=== PATIENT | female | born 1960 | race African-American/Black ===

== ENCOUNTER 2020-08-18 09:08 | Outpatient (REF) | payer MEDICARE, SELFPAY ==
[2020-08-23 19:37] LABS: HPV mRNA E6/E7 Not Detected (Not Detected)
== END 2020-08-18 09:09 | disposition home or self-care (01) ==
LOC: HO.LAB 09:08
PROVIDERS: PCP Internal Medicine; Visit Provider Obstetrics & Gynecology
DX: Z01.419 Encounter for gynecological examination (general) (routine) without abnormal findings (principal); Z88.6 Allergy status to analgesic agent; Z88.0 Allergy status to penicillin; Z79.899 Other long term (current) drug therapy
CPT/HCPCS: 87624; 87625; 88142

== ENCOUNTER → 2020-10-07 14:04 | Outpatient (BNVA) | payer MEDICARE, SELFPAY | PROVIDERS: PCP Internal Medicine; Visit Provider Student in an Organized Health Care Education/Training Program | DX: M17.12 Unilateral primary osteoarthritis, left knee (principal); G57.93 Unspecified mononeuropathy of bilateral lower limbs; Z87.891 Personal history of nicotine dependence; Z79.899 Other long term (current) drug therapy | CPT/HCPCS: Q3014 ==

== ENCOUNTER → 2021-03-24 16:02 | Outpatient (BNVA) | payer MEDICARE, SELFPAY | PROVIDERS: PCP Internal Medicine; Visit Provider Student in an Organized Health Care Education/Training Program | DX: M17.12 Unilateral primary osteoarthritis, left knee (principal); G57.93 Unspecified mononeuropathy of bilateral lower limbs | CPT/HCPCS: 99212 ==

== ENCOUNTER 2021-05-19 12:17 | Outpatient (REF) | payer MEDICARE, SELFPAY ==
--- NOTE | ~2021-05-19 | MM_ITS ---
EXAMINATION: MM DIAGNOSTIC DIGITAL BREAST TOMOSYNTHESIS, BILATERAL CLINICAL INFORMATION: Right invasive ductal cancer status post lumpectomy 07/09/2019. Due for yearly. COMPARISON: Mammography: 05/17/2020, 07/09/2019, 03/09/2019, 12/24/2018, 12/18/2017 TECHNIQUE: Digital breast tomosynthesis is performed in both the craniocaudal and mediolateral oblique views along with computer-aided detection (CAD). Synthesized 2D images are generated from the tomosynthesis. Additional views are obtained: Exaggerated right CC, magnification right CC, magnification right exaggerated CC, magnification right ML. FINDINGS: There are scattered areas of fibroglandular density (ACR BI-RADS breast composition Category b). Post therapy changes right breast are again noted with reduced breast size and stable scarring posterior upper outer quadrant. The axilla and skin contours are unremarkable. No abnormal calcifications. The left breast parenchymal pattern is stable with no interval mass or architectural abnormality. No abnormal calcifications. The left axillary nodes are prominent when compared with prior study, noted after patient left office. Patient will be recalled for additional targeted ultrasound left axilla. MM/MM tomosynthesis diagnostic BI IMPRESSION: 1. Left: Prominence left axillary nodes since prior imaging. Breast parenchymal or unremarkable. 2. Right: Post therapy changes, stable. ASSESSMENT: BI-RADS 0: Incomplete - Need Additional Imaging Evaluation RECOMMENDATION: 1. Targeted ultrasound left axilla. 2. Radiology department staff will arrange for ultrasound appointment. This patient's information was entered into a reminder system with a target due date for their next mammogram.
== END 2021-05-19 12:18 | disposition home or self-care (01) ==
LOC: HO.MAMMO 12:17
PROVIDERS: PCP Internal Medicine; Visit Provider Surgery
DX: Z85.3 Personal history of malignant neoplasm of breast (principal)
CPT/HCPCS: 77062; 77066

== ENCOUNTER 2021-05-24 13:31 | Outpatient (REF) | payer MEDICARE, SELFPAY ==
--- NOTE | ~2021-05-24 | US_ITS ---
EXAMINATION: US DIAGNOSTIC ULTRASOUND BREAST (AXILLA), LEFT CLINICAL INFORMATION: Recall from recent mammography for prominent left axillary nodes with normal breast parenchyma. Prior history invasive ductal cancer contralateral right breast status post lumpectomy 07/09/2019. COMPARISON: Mammography 05/19/2021, 05/17/2020, MRI breasts 06/16/2019. TECHNIQUE: Ultrasound of the left axilla is performed using real-time leary scale imaging and color Doppler. FINDINGS: There is a mildly prominent node in the left axilla 1.6 cm length by 1.0 cm with with cortex measuring 5-6 mm in thickness. There is normal central hilar color flow pattern. The surface of the nodes smooth. No spiculation. No cystic change. Other nodes imaged in the left axilla shows normal arden architecture and color flow and parenchymal thickness. Results are discussed with the patient at time of visit. Patient has had recent COVID vaccination left arm within past 3 months. The prominent left axillary node is likely benign reactive change from the vaccination. The left breast parenchymal pattern on recent mammography is unremarkable. Management plan is for short interval follow-up left side in 3 months. US/US breast LT complete IMPRESSION: Prominent left axillary node with mildly thickened cortex 5-6 mm. Finding likely related to recent COVID vaccination. ASSESSMENT: BI-RADS 3: Probably Benign RECOMMENDATION: Left mammography and targeted left axillary ultrasound in 3 months. This patient's information was entered into a reminder system with a target due date for their next mammogram.
== END 2021-05-24 13:32 | disposition home or self-care (01) ==
LOC: HO.MAMMO 13:31
PROVIDERS: Visit Provider Surgery
DX: R92.8 Other abnormal and inconclusive findings on diagnostic imaging of breast (principal)
CPT/HCPCS: 76641

== ENCOUNTER 2021-07-04 17:44 | Emergency (ER) | payer MEDICARE, SELFPAY ==
--- NOTE | 2021-07-04 | ECG_ITS ---
Test Reason : TACARDYA Blood Pressure : / mmHG Vent. Rate : 132 BPM Atrial Rate : 132 BPM P-R Int : 164 ms QRS Dur : 060 ms QT Int : 274 ms P-R-T Axes : 060 -07 -35 degrees QTc Int : 405 ms Sinus tachycardia Biatrial enlargement Septal infarct , age undetermined Abnormal ECG No previous ECGs available Referred By: Generic ED Physician Electronically Signed By:SAMSON PASCUAL
--- NOTE | ~2021-07-04 | CT_ITS ---
EXAMINATION: CTA CHEST PE STUDY CLINICAL INFORMATION: cancer, tachycardia, abnormal CXR COMPARISON: No pertinent prior studies are available for comparison. TECHNIQUE: Prior to contrast administration, noncontrast localization images were obtained. After the administration of 55 mL of Omnipaque 350 IV contrast, contiguous thin slice helical images were obtained through the thorax. Reformatted MIP images in the coronal and sagittal planes were obtained at the acquisition workstation. This CT examination was performed using dose optimization techniques as appropriate, variously including the following: *Automated exposure control *Adjustment of mA and/or kV according to patient size (this includes techniques or standardized protocols for targeted exams where dose is matched to indication/reason for exam; i.e. extremities or head) *Use of iterative reconstruction technique DLP: 348 mGy-cm. FINDINGS: The bolus timing on this study was acceptable for visualization of the pulmonary arterial tree. Subtle subsegmental filling defects seen within the right lower lobe subsegmental pulmonary arteries. Some of these appear to be more apparent along the wall and may be more chronic in nature rather than acute pulmonary emboli. Patchy airspace disease seen bilaterally with bilateral scattered ill-defined nodular opacities such as a 1 cm nodule in the posterior left costophrenic sulcus. Additional somewhat ill-defined nodular opacities are noted bilaterally which is a 0.7 cm nodule in the posterior aspect of the right lung apex. There is bilateral hilar fullness and more focal consolidation/volume loss in the medial aspect of the right middle lobe with ill-defined nodular opacities seen in the right middle lobe the bilateral hilar regions are prominent without discrete hilar adenopathy but hilar confluent lymphoid tissue likely present. This is difficult to quantify. There is no evidence of pleural effusion or pneumothorax. The heart is normal in size. No evidence of ventricular septal bowing or right heart strain. Great vessels are normal. Otherwise the mediastinum is unremarkable. There is no pericardial effusion or pericardial thickening. Limited evaluation of the upper abdominal viscera is unremarkable. CT/CT angio chest PE protocol IMPRESSION: There are subtle filling defects within subsegmental branches of the right lower lobe since with pulmonary emboli of indeterminate age. More confluent airspace disease is seen within the right middle lobe extending to a ill-defined hilar fullness. There is patchy bilateral nodular airspace disease bilaterally. Some of these nodules or more discrete while others are less well-defined. Malignancy would be favored over infectious etiology with this appearance. Clinical correlation would be recommended. PET/CT scan may be helpful for this appearance. VTE: Positive This critical result was discussed with CYNDI Barger at 07/04/2021 11:03 PM and it was ascertained that the content and urgency of the report was understood at the time of direct communication.
--- NOTE | ~2021-07-04 | CT_ITS ---
EXAMINATION: CT HEAD WITHOUT CONTRAST CLINICAL INFORMATION: Weakness. History of stroke. COMPARISON: None TECHNIQUE: Contiguous axial imaging was performed from the skull base to vertex without intravenous administration of contrast. This CT examination was performed using dose optimization techniques as appropriate, variously including the following: *Automated exposure control *Adjustment of mA and/or kV according to patient size (this includes techniques or standardized protocols for targeted exams where dose is matched to indication/reason for exam; i.e. extremities or head) *Use of iterative reconstruction technique DLP: 693 mGy-cm FINDINGS: There are multiple rounded masses throughout the cerebral cortices bilaterally with surrounding vasogenic edema. Most masses demonstrate central lucency suspicious for necrosis. Metastatic disease is a leading consideration. Further evaluation with MRI of the brain without and with contrast or post contrast CT of the brain is advised. The right middle cerebral peduncle is expanded, and a small 10 mm lesion is suspected with vasogenic edema. The ventricles are normal in size and midline in position. No shift of midline structures. There is diffuse multifocal mass effect from multiple cerebral lesions. The paramesencephalic cisterns are spared. CT/CT head/brain wo con IMPRESSION: Multiple bilateral cerebral and right cerebellar mass lesions. Central necrosis suspected and multiple lesions. Contrast-enhanced exam is advised. This critical result was discussed with CYNDI Kilgore at 10:47 PM on 07/04/2020 and it was ascertained that the content and urgency of the report was understood at the time of direct communication.
--- NOTE | ~2021-07-04 | XR_ITS ---
EXAMINATION: XR CHEST CLINICAL INFORMATION: Chest pain and weakness COMPARISON: Port-A-Cath placement 2019. Dorsal spine 2016. TECHNIQUE: Frontal view of the chest was obtained. FINDINGS: There is chronic progressive airways disease including right greater than left bronchiectasis. There is patchy perihilar airspace disease and small ill-defined nodules on the right which may indicate active endobronchial spread of disease. This could represent bronchopneumonia or aspiration among other considerations. Clinical correlation is required. Heart and mediastinum within normal limits. Normal gas pattern. Postsurgical changes in the right axilla. History of right breast cancer metastatic to axillary nodes. No acute osseous finding. XR/XR chest 1V IMPRESSION: There is new patchy airspace disease and endobronchial spread of disease on the right. Progressive chronic airways disease with bronchiectasis.
[2021-07-04 18:30] VITALS: BP 103/80; PULSE 136; RESP 16; TEMP 37.1; O2SAT 96; BMI 20.3
--- NOTE | 2021-07-04 18:41 | PC.NURSE ---
SPOKE WITH SON MARTA WHO CONFIRMED PATIENT HAD MINI STROKE AND THAT WAS REASON SHE WAS AT [facility]. ALSO STATES SHE WAS TOLD CA IN NOW IN HER BRAIN. CONFIRMED PATIENT FACIAL DROOP HAS BEEN PRESENT SINCE KE. THINKS PATIENT NEEDS REHAB/FACILITY.
[2021-07-04 19:18] LABS: MANUAL DIFF FLAG NO
[2021-07-04 19:20] LABS: Basophils Percent Auto 0.2 % (0-2); Eosinophils Absolute Auto 0.1 X10*3/uL (0.0-0.4); Eosinophils Percent Auto 0.7 % (0-4); Hematocrit 40.6 % (37-47); Hemoglobin 13.2 g/dl (12.0-16.0); Imm Gran Abs Auto 0.08 X10*3/uL (0.00-0.03); Imm Gran Pct Auto 0.8 % (0.0-0.4); Lymphocytes Absolute Auto 0.6 X10*3/uL (1.2-4.9); Mean Corpuscular HGB Conc 32.5 g/dl (31.0-35.0); Mean Corpuscular Hemoglobin 26.3 pg (27.0-33.0); Mean Platelet Volume 9.4 fL (9.4-12.3); Monocytes Absolute Auto 0.5 X10*3/uL (0.1-1.2); Monocytes Percent Auto 4.5 % (2-11); Neutrophils Percent Auto 87.8 % (45-73); Platelet Count 206 X10*3/uL (160-400); Red Blood Count 5.01 X10*6/uL (4.20-5.50); Red Cell Distribution Width 14.7 % (11.0-16.0); White Blood Count 10.3 X10*3/uL (4.8-10.8)
[2021-07-04 19:49] LABS: Anion Gap 17 (12-20); Blood Urea Nitrogen 34 mg/dL (9-16); Carbon Dioxide 26 mmol/L (22-29); Chloride 103 mmol/L (96-108); Creatinine Clr Calc Pharmacy 58.2; Estimated Glomerular Filt Rate > 60; Glucose Random 185 mg/dL (60-115); Sodium 142 mmol/L (135-145)
--- NOTE | 2021-07-04 20:33 | ED_ITS ---
HPI - Weakness General Chief complaint: Weakness Stated complaint: body weakness, pt cancer Time Seen by Provider: 07/04/21 19:56 Source: patient, family, RN notes reviewed and old records reviewed Mode of arrival: ambulatory Limitations: no limitations History of Present Illness HPI Narrative: 61 y/o female with history of metastatic breast cancer s/p mastectomy, chemo and currently on palliative radiation for newly found brain mets w/ vasogenic edema who presents to the ER from home with generalized weakness. She reports she was recently discharged from [facility] 4 days ago. Prior to that she was admitted at [facility] 06/18-07/01 for AMS where she was found to have extensive brain mets, seen by heme/onc, neurosurg and neuro - started on RT and decadron. She was discharged to [facility] but hated it and requested to go back to the hospital in less than 24 hours. She sat in [facility] ER for 24 hours and then demanded to go home. She had no services at home and lives alone. Her son has been checking on her and worried about her weakness. She reports some intermittnet SOB, chest pains, and new urinary incontinence. She is a poor historian and most of history was obtained from [facility] records and talking with her son. MD Complaint: generalized weakness Onset (ago): week(s) Duration: constant Location: generalized Migration: none Severity: moderate Quality: aching Relieving factors: none Exacerbating factors: exertion Context: history of similar Associated symptoms: chest pain, loss of appetite, myalgias and shortness of breath Related Data Home Medications Medication Instructions Recorded Confirmed brimonidine 0.2 % eye drops 1 drp OPHTHALMIC-RIGHT BID 08/18/20 08/27/20 clonazepam 0.5 mg tablet 0.5 mg PO DAILY PRN 08/18/20 08/27/20 clonazepam 1 mg tablet 1 mg PO BID PRN 08/18/20 08/27/20 dronabinol 2.5 mg capsule 2.5 mg PO BID 08/18/20 08/27/20 emollient combination no.[id number] applic TOPICAL 08/18/20 08/18/20 loteprednol etabonate 0.5 % eye 1 drp OPHTHALMIC (EYE) DAILY 08/18/20 08/27/20 gel drops lurasidone 20 mg tablet 20 mg PO DAILY 08/18/20 08/18/20 mirtazapine 45 mg tablet 45 mg PO BEDTIME 08/18/20 08/27/20 quetiapine 50 mg tablet 50 mg PO BEDTIME 08/18/20 08/27/20 sertraline 100 mg tablet 100 mg PO DAILY 08/18/20 08/27/20 triamcinolone acetonide 0.1 % applic TOPICAL 08/18/20 08/18/20 topical cream Previous Rx's Medication Instructions Recorded gabapentin 100 mg capsule 100 mg PO BID #60 cap 05/03/21 letrozole 2.5 mg tablet 2.5 mg PO DAILY tab 06/16/21 Allergies Allergy/AdvReac Type Severity Reaction Status Date / Time aspirin [ASPIRIN] Allergy Intermediate GI UPSET Verified 03/24/21 16:06 Penicillins [PENICILLINS] Allergy Mild RASH/GI Verified 03/24/21 16:06 UPSET ( CHILD) Review of Systems Constitutional: Constitutional: Denies chills, Reports fatigue, Denies fever(s), Reports headache(s), Denies increased appetite, Reports lethargy, Re ports malaise, Reports poor appetite and Denies weakness Eyes: Eyes: Reports no additional eye complaints ENT: Reports Normal hearing present, Denies dizziness, Denies otalgia, Denies facial pain, Reports headache(s), Denies mouth pain and Denies neck pain Cardiovascular: Cardiovascular: Reports chest pain, Denies pedal edema, Denies edema, Denies lightheadedness, Denies Loss of Consciousness, Reports dyspnea and Reports dyspnea on exertion Respiratory: Respiratory: Denies chest congestion, Denies cough, Denies hemoptysis, Denies pain on inspiration, Denies pain with cough, Reports dyspnea, Reports dyspnea on exertion and Denies wheezing Gastrointestinal: Gastrointestinal: Denies abdominal pain, Reports constipation, Denies nausea and Denies vomiting Genitourinary: Genitourinary: Reports dysuria, Denies flank pain, Reports urinary incontinence and Reports urinary urgency Musculoskeletal: Musculoskeletal: Reports abnormal gait, Reports myalgias and Denies neck pain Integumentary/Breasts: Skin/Breast: Denies rash Neurologic: Reports Normal hearing present, Reports abnormal gait, Denies dizziness, Reports headache(s), Denies focal weakness, Denies seizure-like activity and Denies weakness Endocrine: Endocrine: Reports fatigue Hematologic/Lymphatic: Hematologic/Lymphatic: Denies easy bleeding and Denies easy bruising Allergic/Immunologic: Allergic/Immunologic: Denies wheezing [facility] Past Medical History Medical History Arthritis Bipolar disorder Breast cancer, right breast Carpal tunnel syndrome Depression Primary osteoarthritis of left knee Surgical History History of bilateral tubal ligation History of History of elbow surgery Hx of cataract removal with insertion of prosthetic lens Family History Family History Mother Diabetes Stroke Paternal Grandmother Cancer Social History Social History (Updated 03/24/21 @ 16:07 by Hallie Little CMA) Alcohol intake: never Patient Tobacco Use Status: Former Tobacco user Tobacco use type: Cigarette Cigarettes Per Day: 2 Years Smoked: 10 Advance Directives: No Advance Directives Information Provided: No Sexual orientation: Straight/Heterosexual Gender identity: Female Physical Exam Vital Signs: Vital Signs: Last Vital Signs Temp 98.8 F 07/04/21 18:30 Pulse 83 07/04/21 23:21 Resp 16 07/04/21 23:21 BP 100/60 07/04/21 23:21 Pulse Ox 96 07/04/21 23:21 Body Mass Index 20.3 Const: General: cooperative, comfortable, no acute distress, ill appearing chronically and tired appearing Nutritional Appearance: thin Orientation/consciousness: patient oriented x3 Limitations: no limitations HENMT: Head: Yes normal to inspection, Yes normocephalic and Yes atraumatic Ears: hearing grossly normal bilaterally and external ears normal General nose exam: Normal external nose present and Normal nares present Face and sinus: Yes other (right sided facial droop) Mouth: lip normal, tongue normal, oropharynx normal and moist mucous membranes Teeth and gingiva: dentition normal and gingiva normal Throat: Yes posterior oropharynx normal, Yes tonsils normal and Yes uvula midline Eyes: General: appearance normal, both eyes and all related structures Neck: Neck: Yes normal visual inspection Chest: Chest palpation & inspection: normal inspection of the chest Resp: Effort & Inspection: normal respiratory effort and able to speak in complete sentences Auscultation: diminished lung sounds bilateral in the lower lung valerio Cardio: Rate: regular rate Rhythm: regular rhythm Heart sounds: S1 normal heart sound present and S2 normal heart sound present GI: Inspection: Yes normal to inspection Palpation (GI): Soft to palpation, not firm and nontender Auscultation: normal bowel sounds Rectal Exam - Female: deferred Skin: General skin exam: no rashes or lesions noted Neuro: General: patient oriented x3, tone normal and moves all extremities Cranial nerves: Yes CN's II-XII intact bilaterally and Yes Normal hearing pr esent Gait exam (Neuro): Assisted gait required Gait assisted method: walking stick Motor exam (neuro): Abnormal motor strength present right lower extremity opposition 4 / 5 Extrem: General: Yes normal to inspection Psych: Appearance: grossly normal and well kempt Mental Status: mental status grossly normal Speech and movement: Normal speech and movement present and Clear speech present Affect: normal affect Attitude: cooperative Course Course Course Narrative: 61 y/o female with history of metastatic breast cancer on palliative chemo with recently diagnosed extensive brain mets who comes to the ER with ongoing generalized weakness. She left a rehab because she hated it. She insisted on leaving [facility] ER 4 days ago and going home - son reports went home with no VNA or Home PT. Her reports since her brain mets have been diaganosed she has some RLE weakness and needs to walk with a cane. She reports new onset urinary incontience and burning will check UA to see if UTI exacerbating baseline weakness. Labs and CT scans ordered - will get CTA to r/o PE given tachycardia on arrival with reports of intermittent SOB and chest pains. Her CT scans at [facility] showed progression of disease in her chest w/ possible lymphangitic carcinomatosis. Confirmed DNR/DNI status with her son. Patient is a poor historian. Reevaluation(s) Reevaluation #1: Lab workup is unremarkable aside from mildly elevated trop. No current chest pain. CT scans showing multiple bilateral cerebral and right cerebellar mass lesions with possible central necrosis. Radiologist at [place] was unable to compare to CT/MRI just done at [facility]. CT chest showing possible chronic small subsegmental PEs with most likely metastatic disease progression in her chest. Given her extensive brain mets will hold off on anticoagulation for chronic low risk PE's. TT Dr. Ferro for non-emergent recs and plan. No emergent need for admission to the hospital at this time given her goals of care, she unlikely a candidate for ongoing chemo given her significant weakness. Reevaluation #2: UA is positive for infection. NO leukocytosis or elevated lactic acid. Not septic. Will start PO ceftin. Will plan for PT eval in the morning and Case management consult. Son updated on plan of care. Physician observation started at 1am. Patient placed in physician observation because patient is awaiting PT/CM evaluation for the possible need of short term rehab. At the time observation was started patient's vital signs were stable. Patient is alert and oriented. Neuro exam showing chronic right sided facial droop, mild RLE weakness.. CV: RRR and lungs are clear. Will continue to monitor. Consultations Consultation #1: Heme/onc - Dr. Ferro MDM - Weakness Lab Data Attestation: I reviewed the patient's lab results. Result diagrams: 07/04/21 19:12 07/04/21 19:12 Labs: Lab Results 07/04/21 07/04/21 07/04/21 Range/Units 19:12 19:12 19:12 WBC 10.3 (4.8-10.8) X10*3/uL RBC 5.01 (4.20-5.50) X10*6/uL Hgb 13.2 (12.0-16.0) g/dl Hct 40.6 (37-47) % MCV 81.0 (80-98) fL MCH 26.3 L (27.0-33.0) pg MCHC 32.5 (31.0-35.0) g/dl RDW 14.7 (11.0-16.0) % Plt Count 206 (160-400) X10*3/uL MPV 9.4 (9.4-12.3) fL Immature Gran % (Auto) 0.8 H (0.0-0.4) % Neut % (Auto) 87.8 H (45-73) % Lymph % (Auto) 6.0 L (20-40) % [place] % (Auto) 4.5 (2-11) % Eos % (Auto) 0.7 (0-4) % Baso % (Auto) 0.2 (0-2) % Lymph # (Auto) 0.6 L (1.2-4.9) X10*3/uL [place] # (Auto) 0.5 (0.1-1.2) X10*3/uL Eos # (Auto) 0.1 (0.0-0.4) X10*3/uL Baso # (Auto) 0.0 (0.0-0.2) X10*3/uL Abs Immat Gran (auto) 0.08 H (0.00-0.03) X10*3/uL Absolute Neuts (auto) 9.0 H (2.0-8.3) X10*3/uL Absolute Nucleated RBC 0.000 (0.0-0.012) X10*3/uL Nucleated RBC % (auto) 0.0 (0.0-0.2) /100WBC Sodium 142 (135-145) mmol/L Potassium 4.0 (3.3-5.1) mmol/L Chloride 103 (96-108) mmol/L Carbon Dioxide 26 (22-29) mmol/L Anion Gap 17 (12-20) BUN 34 H (9-16) mg/dL Creatinine 0.92 (0.5-1.4) mg/dL Estim Creat Clear Calc 58.2 Estimated GFR > 60 Random Glucose 185 H (60-115) mg/dL Lactic Acid (0.5-2.0) mmol/L Calcium 10.0 (8.4-10.2) mg/dL Troponin I High Sens 37.0 H* (<3.5-17.0) ng/L B-Natriuretic Peptide 31 (<100) pg/mL Procalcitonin ng/mL Urine Color Urine Appearance Urine pH (5.0-8.0) Ur Specific [place] (1.005-1.025) Urine Protein (NEG-TRACE) MG/DL Urine Glucose (UA) (NEG) MG/DL Urine Ketones (NEG) MG/DL Urine Blood (NEG) Urine Nitrite (NEG) Ur Leukocyte Esterase (NEG) Urine RBC (0) /HPF Urine WBC (0-4) /HPF Ur Squamous Epith Cells /LPF Ur Renal Epithelial Cell /LPF Urine Bacteria /LPF Hyaline Casts /LPF Urine Mucus /LPF COVID-19 (CELESTE) (Negative) COVID-19 Clin Com 07/04/21 07/04/21 07/05/21 Range/Units 19:12 22:13 00:37 WBC (4.8-10.8) X10*3/uL RBC (4.20-5.50) X10*6/uL Hgb (12.0-16.0) g/dl Hct (37-47) % MCV (80-98) fL MCH (27.0-33.0) pg MCHC (31.0-35.0) g/dl RDW (11.0-16.0) % Plt Count (160-400) X10*3/uL MPV (9.4-12.3) fL Immature Gran % (Auto) (0.0-0.4) % Neut % (Auto) (45-73) % Lymph % (Auto) (20-40) % [place] % (Auto) (2-11) % Eos % (Auto) (0-4) % Baso % (Auto) (0-2) % Lymph # (Auto) (1.2-4.9) X10*3/uL [place] # (Auto) (0.1-1.2) X10*3/uL Eos # (Auto) (0.0-0.4) X10*3/uL Baso # (Auto) (0.0-0.2) X10*3/uL Abs Immat Gran (auto) (0.00-0.03) X10*3/uL Absolute Neuts (auto) (2.0-8.3) X10*3/uL Absolute Nucleated RBC (0.0-0.012) X10*3/uL Nucleated RBC % (auto) (0.0-0.2) /100WBC Sodium (135-145) mmol/L Potassium (3.3-5.1) mmol/L Chloride (96-108) mmol/L Carbon Dioxide (22-29) mmol/L Anion Gap (12-20) BUN (9-16) mg/dL Creatinine (0.5-1.4) mg/dL Estim Creat Clear Calc Estimated GFR Random Glucose (60-115) mg/dL Lactic Acid 1.0 (0.5-2.0) mmol/L Calcium (8.4-10.2) mg/dL Troponin I High Sens 34.5 H* (<3.5-17.0) ng/L B-Natriuretic Peptide (<100) pg/mL Procalcitonin 0.15 ng/mL Urine Color Urine Appearance Urine pH (5.0-8.0) Ur Specific [place] (1.005-1.025) Urine Protein (NEG-TRACE) MG/DL Urine Glucose (UA) (NEG) MG/DL Urine Ketones (NEG) MG/DL Urine Blood (NEG) Urine Nitrite (NEG) Ur Leukocyte Esterase (NEG) Urine RBC (0) /HPF Urine WBC (0-4) /HPF Ur Squamous Epith Cells /LPF Ur Renal Epithelial Cell /LPF Urine Bacteria /LPF Hyaline Casts /LPF Urine Mucus /LPF COVID-19 (CELESTE) (Negative) COVID-19 Clin Com 07/05/21 07/05/21 Range/Units 00:38 00:46 WBC (4.8-10.8) X10*3/uL RBC (4.20-5.50) X10*6/uL Hgb (12.0-16.0) g/dl Hct (37-47) % MCV (80-98) fL MCH (27.0-33.0) pg MCHC (31.0-35.0) g/dl RDW (11.0-16.0) % Plt Count (160-400) X10*3/uL MPV (9.4-12.3) fL Immature Gran % (Auto) (0.0-0.4) % Neut % (Auto) (45-73) % Lymph % (Auto) (20-40) % [place] % (Auto) (2-11) % Eos % (Auto) (0-4) % Baso % (Auto) (0-2) % Lymph # (Auto) (1.2-4.9) X10*3/uL [place] # (Auto) (0.1-1.2) X10*3/uL Eos # (Auto) (0.0-0.4) X10*3/uL Baso # (Auto) (0.0-0.2) X10*3/uL Abs Immat Gran (auto) (0.00-0.03) X10*3/uL Absolute Neuts (auto) (2.0-8.3) X10*3/uL Absolute Nucleated RBC (0.0-0.012) X10*3/uL Nucleated RBC % (auto) (0.0-0.2) /100WBC Sodium (135-145) mmol/L Potassium (3.3-5.1) mmol/L Chloride (96-108) mmol/L Carbon Dioxide (22-29) mmol/L Anion Gap (12-20) BUN (9-16) mg/dL Creatinine (0.5-1.4) mg/dL Estim Creat Clear Calc Estimated GFR Random Glucose (60-115) mg/dL Lactic Acid (0.5-2.0) mmol/L Calcium (8.4-10.2) mg/dL Troponin I High Sens (<3.5-17.0) ng/L B-Natriuretic Peptide (<100) pg/mL Procalcitonin ng/mL Urine Color YELLOW Urine Appearance HAZY Urine pH 6.0 (5.0-8.0) Ur Specific [place] 1.010 (1.005-1.025) Urine Protein TRACE (NEG-TRACE) MG/DL Urine Glucose (UA) NEG (NEG) MG/DL Urine Ketones NEG (NEG) MG/DL Urine Blood TRACE (NEG) Urine Nitrite POS H (NEG) Ur Leukocyte Esterase 1+ H (NEG) Urine RBC 1-4 (0) /HPF Urine WBC 5-9 H (0-4) /HPF Ur Squamous Epith Cells TRACE /LPF Ur Renal Epithelial Cell TRACE /LPF Urine Bacteria 3+ /LPF Hyaline Casts 0-2 /LPF Urine Mucus 2+ /LPF COVID-19 (CELESTE) Negative (Negative) COVID-19 Clin Com See Note ECG Data Attestation: I personally reviewed and interpreted this ECG as follows: ECG interpretation date: 07/04/21 Prior ECG tracings: not available for review Interpretation: sinus tachycardia, HR 132 bpm, TN interval normal. biatrial enlargement, No ST segment elevations or depressions Discharge Plan Discharge Clinical Impression: Metastatic breast cancer, Acute UTI Prescriptions: No Action gabapentin 100 mg capsule 100 mg PO BID Qty: 60 RF: 5 letrozole 2.5 mg tablet 2.5 mg PO DAILY RF: 3 quetiapine 50 mg tablet 50 mg PO BEDTIME RF: 0 sertraline 100 mg tablet 100 mg PO DAILY RF: 0 triamcinolone acetonide 0.1 % cream topical RF: 0 clonazepam 1 mg tablet 1 mg PO BID PRN (Reason: Anxiety) RF: 0 clonazepam 0.5 mg tablet 0.5 mg PO DAILY PRN (Reason: anxiety) RF: 0 Latuda 20 mg tablet 20 mg PO DAILY RF: 0 mirtazapine 45 mg tablet 45 mg PO BEDTIME RF: 0 Eucerin Intensive Repair Cream Cream topical RF: 0 dronabinol 2.5 mg capsule 2.5 mg PO BID RF: 0 Lotemax 0.5 % drops,gel 1 drp ophthalmic (eye) DAILY RF: 0 brimonidine 0.2 % drops 1 drp ophthalmic-Right BID RF: 0
[2021-07-04 20:52] LABS: B Type Natriuretic Peptide 31 pg/mL (<100)
[2021-07-04 22:31] LABS: Procalcitonin 0.15 ng/mL
[2021-07-04] MEDS: iohexoL 350 MG/ML 100 ML INFUS..BTL IV (22:43)
[2021-07-04] MEDS: 0.9 % Sodium Chloride 1,000 ML 999 ML IVCONT (22:44)
[2021-07-04 23:21] VITALS: BP 100/60; PULSE 83; RESP 16; O2SAT 96
[2021-07-04] MEDS: dexAMETHasone sod phosphate 4 MG/ML VIAL 6 MG IVPUSH (23:35)
[2021-07-05 00:55] LABS: Glucose Urine UA NEG (NEG); Leukocyte Esterase Urine 1+ (NEG); Nitrite Urine POS (NEG); Urine Blood TRACE (NEG); Urine Ketones NEG (NEG); Urine Protein TRACE MG/DL (NEG-TRACE)
[2021-07-05 00:58] LABS: Appearance Urine HAZY; Color Urine YELLOW; UACC Culture Trigger NO
[2021-07-05 01:00] LABS: COVID-19 Test Negative (Negative); IDNOW Serial# 9DD0AD1C
[2021-07-05 01:19] LABS: Troponin-I High Sensitivity 34.5 ng/L (<3.5-17.0)
[2021-07-05 01:19] LABS: Bacteria Urine 3+ /LPF; Hyaline Casts Urine 0-2 /LPF; Mucus Urine 2+ /LPF; Renal Epithelial Cells Urine TRACE /LPF; Squamous Epithelial Cell Urine TRACE /LPF; UACC CULT YES
[2021-07-05 01:38] VITALS: RESP 16
[2021-07-05 06:32] VITALS: RESP 16
--- NOTE | 2021-07-05 07:37 | PC.NURSE ---
Reports recieved from Erlinda RN, Pt sleeping. chest rise noted.
[2021-07-05 08:55] VITALS: BP 100/66; PULSE 99; O2SAT 99
[2021-07-05 08:56] VITALS: BP 100/66; PULSE 99; RESP 16; TEMP 37.1; O2SAT 99
--- NOTE | 2021-07-05 09:27 | PHA.MEDREC ---
Pharmacy Consult ? Medication Reconciliation Pharmacy has reviewed the medication reconciliation. Complete by nursing staff overnight. Med rec was completed by records from recent discharge from [facility] which lined up with outpatient pharmacy records. Ilene Antonio, BrandtD
[2021-07-05] MEDS: Gabapentin 100 MG CAPSULE PO (09:42)
[2021-07-05] MEDS: Lurasidone HCl 20 MG TABLET PO (09:42)
[2021-07-05] MEDS: Sertraline HCL 100 MG TABLET PO (09:42)
[2021-07-05] MEDS: dexAMETHasone 4 MG TABLET PO (09:42)
[2021-07-05] MEDS: Brimonidine Tartrate 0.2% Oph 5 ML BOTTLE 1 DROP EYE-BOTH (09:42)
[2021-07-05] MEDS: Letrozole 2.5 MG TABLET PO (09:42)
--- NOTE | 2021-07-05 09:56 | MHC.CM.ED ---
Received case management consult overnight from Yesy HANNA. Patient came to the ER due to weakness. Patient was recently at [facility] for CVA. Patient was discharged to [facility]. She was not happy there and went to [facility]. She was discharged home from [facility]. 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 Physical therapy eval completed. Home therapy is recommended. Per Aliya at [facility], they will authorize physical therapy through [facility]. Referral made via [employer]. Action chair van booked for noon because patient's sonGlen will need to bring the patient's apartment keys to her. Patient received 2 [place] vaccines. Last one in december. Continue to monitor for d/c needs.
[2021-07-05 12:00] VITALS: BP 105/62; PULSE 85; RESP 16; TEMP 37.1; O2SAT 99
== END 2021-07-05 12:22 | disposition home or self-care (01) ==
PROVIDERS: Physician Assistant; Emergency Provider Internal Medicine
DX: N39.0 Urinary tract infection, site not specified (principal); R53.1 Weakness; R00.0 Tachycardia, unspecified; C50.911 Malignant neoplasm of unspecified site of right female breast; C79.31 Secondary malignant neoplasm of brain; R06.02 Shortness of breath; G57.93 Unspecified mononeuropathy of bilateral lower limbs; Z92.3 Personal history of irradiation; Z92.21 Personal history of antineoplastic chemotherapy; Z66 Do not resuscitate; Z20.822 Contact with and (suspected) exposure to COVID-19
CPT/HCPCS: 36415; 70450; 71045; 71275; 80048; 81001; 83605; 83880; 84145; 84484; 85025; 87040; 87635; 93005; 96361; 96365; 96375; 97161; 99284; J1100; J8540; Q9967

== ENCOUNTER 2021-07-08 15:55 | Emergency (ER) | payer OTHER, SELFPAY ==
--- NOTE | ~2021-07-08 | XR_ITS ---
EXAMINATION: XR CHEST CLINICAL INFORMATION: Cough. Weakness COMPARISON: 07/04/2021 TECHNIQUE: 2 views of the chest were obtained. FINDINGS: The lungs are well expanded. Right perihilar airspace opacities are again noted, similar to prior. Bronchial wall thickening noted. No pleural effusion or pneumothorax. The cardiomediastinal silhouette is within normal limits. Right axillary surgical clips. No acute osseous abnormality. XR/XR chest 2V IMPRESSION: Similar appearance of the right midlung airspace opacity, which previously was suggested to represent malignancy versus pneumonia. Continued follow-up recommended.
--- NOTE | ~2021-07-08 | CT_ITS ---
EXAMINATION: CT HEAD WITHOUT CONTRAST CLINICAL INFORMATION: Fall. Head injury. Breast cancer with metastases to the brain. COMPARISON: 07/04/2021 TECHNIQUE: Contiguous axial imaging was performed from the skull base to vertex without intravenous contrast. This CT examination was performed using dose optimization techniques as appropriate, variously including the following: * Automated exposure control * Adjustment of mA and/or kV according to patient size (this includes techniques or standardized protocols for targeted exams where dose is matched to indication/reason for exam; i.e. extremities or head) Use of iterative reconstruction technique DLP: 702 mGy-cm. FINDINGS: As seen on the recent prior study there are multiple metastatic lesions throughout both cerebral hemispheres with surrounding vasogenic edema. This appearance is unchanged from prior. No intracranial hemorrhage. Cerebellar hemispheric masses are also again noted. There is no midline shift. Javier to white matter differentiation is well preserved. No extra-axial fluid collections are identified. No hydrocephalus. No significant volume loss. The osseous structures and soft tissues are normal. The mastoid air cells and visualized portions of the paranasal sinuses are well aerated. CT/CT head/brain wo con IMPRESSION: Redemonstration of diffuse metastatic brain lesions with associated vasogenic edema. The appearance is unchanged from prior. No acute intracranial hemorrhage.
[2021-07-08 16:05] VITALS: BP 105/70; PULSE 80; O2SAT 100
[2021-07-08 16:24] VITALS: BP 103/70; PULSE 116; RESP 16; TEMP 36.8; O2SAT 98
--- NOTE | 2021-07-08 16:48 | ECG_ITS ---
Test Reason : WEAKNESS Blood Pressure : / mmHG Vent. Rate : 090 BPM Atrial Rate : 090 BPM P-R Int : 182 ms QRS Dur : 074 ms QT Int : 362 ms P-R-T Axes : 031 -28 028 degrees QTc Int : 442 ms Normal sinus rhythm Possible Left atrial enlargement Septal infarct , age undetermined Abnormal ECG No previous ECGs available Referred By: Tavon Dodge Electronically Signed By:SAMSON PASCUAL
--- NOTE | 2021-07-08 16:51 | ED_ITS ---
HPI - Weakness General Chief complaint: Failure to Thrive Stated complaint: failure to thrive Time Seen by Provider: 07/08/21 16:18 Source: patient and EMS Mode of arrival: EMS Limitations: other (Patient is a poor informant, difficult to get information from) History of Present Illness HPI Narrative: Nurse triage note: History of breast cancer with Mets to brain sent from [facility] at [place] d/t not being able to stay home for safety reasons 61-year-old female with breast cancer with metastases to brain who was sent to the emergency department but VNA for failure to thrive. The patient told me that she is having difficulty staying awake . She complains of not feeling well for 2-3 days. She complained of subjective fever, productive cough with yellow mucus, intermittent, sharp, mild to moderate, chest pain worse with coughing, nausea and vomiting 2-3 episodes per day, body aches and severe fatigue. She reports that she fell today and struck the right side of her head, she states that she was standing by the elevator got weak and struck her head, she is uncertain if she passed out she is uncertain how much time she spent on the floor. Patient states she did receive the Pfizer 2 shot COVID-19 vacc ination with her 2nd shot in December of 2020. 2020: The patient was inappropriately registered as a new patient the patient's medical record number is:[id number]. The following information was obtained from the patient's visit on 07/04/2021 HPI Narrative: 61 y/o female with history of metastatic breast cancer s/p mastectomy, chemo and currently on palliative radiation for newly found brain mets w/ vasogenic edema who presents to the ER from home with generalized weakness. She reports she was recently discharged from [facility] 4 days ago. Prior to that she was admitted at [facility] 06/18-07/01 for AMS where she was found to have extensive brain mets, seen by heme/onc, neurosurg and neuro - started on RT and decadron. She was discharged to [facility] but hated it and requested to go back to the hospital in less than 24 hours. She sat in [facility] ER for 24 hours and then demanded to go home. She had no services at home and lives alone. Her son has been checking on her and worried about her weakness. She reports some intermittnet SOB, chest pains, and new urinary incontinence. She is a poor historian and most of history was obtained from [facility] records and talking with her son. CT scans showing multiple bilateral cerebral and right cerebellar mass lesions with possible central necrosis. Radiologist at [facility] was unable to compare to CT/MRI just done at [facility]. CT chest showing possible chronic small subsegmental PEs with most likely metastatic disease progression in her chest. Given her extensive brain mets will hold off on anticoagulation for chronic low risk PE's. TT Dr. Ferro for non-emergent recs and plan. No emergent need for admission to the hospital at this time given her goals of care, she unlikely a candidate for ongoing chemo given her significant weakness. Related Data Home Medications Medication Instructions Recorded Confirmed brimonidine 0.2 % eye drops 1 drp OPHTHALMIC-RIGHT BID 07/08/21 07/08/21 cefuroxime axetil 500 mg tablet 1 tab PO BID 07/08/21 07/08/21 clonazepam 0.5 mg tablet 1 tab PO DAILY 07/08/21 07/08/21 clonazepam 1 mg tablet 1 tab PO BID 07/08/21 07/08/21 cyclosporine 0.05 % eye drops in a 1 drp OPHTHALMIC (EYE) BID 07/08/21 07/08/21 dropperette (Restasis) gabapentin 100 mg capsule 1 cap PO BID 07/08/21 07/08/21 letrozole 2.5 mg tablet 1 tab PO DAILY 07/08/21 07/08/21 lurasidone 40 mg tablet (Latuda) 1 tab PO DAILY 07/08/21 07/08/21 mirtazapine 45 mg tablet 1 tab PO BEDTIME 07/08/21 07/08/21 sertraline 100 mg tablet 1 tab PO DAILY 07/08/21 07/08/21 timolol maleate 0.5 % eye drops 1 drp OPHTHALMIC (EYE) BID 07/08/21 07/08/21 Allergies Allergy/AdvReac Type Severity Reaction Status Date / Time No Known Allergies Allergy Verified 07/08/21 16:44 Review of Systems Review of Systems: Yes all other systems are reviewed and are negative [facility] Past Medical History [facility] Narrative: Past medical history: Hypertension, breast cancer metastatic to brain. Social history: The patient states she lives alone at home. She is a former smoker and quit 5 years prior but cannot tell me how many years she smoked 4. She denies alcohol use. She denies drug use. Medical History (Updated 07/09/21 @ 02:34 by Tavon Dodge MD) Breast cancer metastasized to brain Social History Social History Alcohol intake: unknown Patient Tobacco Use Status: Tobacco use Unknown Use of substances other than those prescribed or required for medical reasons: Unable to respond Advance Directives: No Advance Directives Information Provided: Yes Patient : No Physical Exam Vital Signs: Vital Signs: Last Vital Signs Temp 99.7 F 07/08/21 19:10 Pulse 78 07/09/21 01:20 Resp 11 L 07/09/21 01:20 BP 110/65 07/08/21 20:13 Pulse Ox 100 07/09/21 01:20 Body Mass Index 20.0 Const: Other: Pleasant, cooperative female, appears older than her stated age, very soft-spoken, poor informant, obvious right facial droop Orientation/consciousness: oriented to person HENMT: Head: Yes normal to inspection, Yes normocephalic and Yes atraumatic Ears: external ears normal General nose exam: Normal external nose present Face and sinus: Yes other (Right facial droop, unable to close eye, unable to wrinkle forehead) Mouth: Normal oral and palatal mucosa present Throat: Yes posterior oropharynx normal Eyes: General: appearance normal, both eyes and all related structures Pupils: Equal, round and reactive pupils present Neck: Neck: Yes normal visual inspection, Yes no lymphadenopathy, Yes trachea midline and Yes supple Chest: Chest palpation & inspection: normal inspection of the chest and normal palpation of entire chest wall Resp: Effort & Inspection: normal respiratory effort and able to speak in complete sentences Auscultation: clear to auscultation bilaterally Cardio: Rate: tachycardic Rhythm: regular rhythm Heart sounds: S1 normal heart sound present, S2 normal heart sound present and no murmurs GI: Inspection: Yes normal to inspection Palpation (GI): Soft to palpation, nontender and no guarding Auscultation: normal bowel sounds : General: Yes no CVA tenderness Back/Spine/Pelvis: Back: no CVA tenderness Skin: General skin exam: no rashes or lesions noted Neuro: General: oriented to person Cranial nerves: Yes Equal, round and reactive pupils present and Yes Individual cranial nerve findings present III: normal, IV: normal, V: normal, VII: abnormal (unable to close R eye, unable to wrinkle forehead), VIII: normal, IX: normal, X: normal and XI: normal Cognition (Neuro): normal cognition and abnormal cognition (Slow to answer questions, soft-spoken) Motor exam (neuro): Abnormal motor strength present ( right-sided upper and lower extremity weakness compared to left) Extrem: General: Yes normal to inspection Psych: Appearance: grossly normal Speech and movement: Normal speech and movement present Affect: normal affect Attitude: cooperative Thought process: Normal thought process present Thought content: Normal thought content present Course Course Course Narrative: 61-year-old female who was referred to the emergency department from [facility] that saw her at home and felt that she was unsafe. The patient complained fatigue, fever, cough, chest pain, vomiting and body aches. She also reported a fall today with a head injury. Nursing staff reports that the patient was recently admitted at and then discharged home. Nursing staff reports that the patient has breast cancer metastatic to the brain. Physical examination did reveal a woman who appears to be older than her stated age, she does answer questions slowly in a very soft voice. She has a right facial droop that I believe may be a peripheral cranial nerve 7, but she does have right sided upper and lower extremity weakness which is greater than the left. I did order laboratory evaluation on this patient to include CBC, CMP PT/INR, PTT, troponin, BNP, lactic acid, lipase, urinalysis. CT scan will be obtained to evaluate the patient's brain Mets and to rule out bleed versus stroke. 2035: Patient's laboratory evaluation revealed mild anemia with an H&H of 11 and 33.7. White blood cell count was normal. PT/INR and PTT were normal. Comprehensive metabolic panel was unremarkable. Urinalysis was negative. Alcohol levels below detectable limits. COVID-19 was negative. Chest x-ray was consistent with a right mid lobe opacity consistent with malignancy. Scan of the brain revealed diffuse metastatic brain lesions with associated vasovagal edema unchanged from the previous CT scan 07/04/2021. I did discuss my findings with the patient's son, MARTA who can be reached at . The plan will be to keep the patient in the emergency department until Case Management can find an appropriate bed for this patient . The patient will be appropriate for hospice care. 2138: Physician observation started at 2138. Patient placed in physician observation because the patient will need case management evaluation for hospice care. At the time observation was started the patient's vitals were stable, patient is somnolent but arousable, she was able to tell me her name. Her lung exam was nonfocal, abdomen is nontender, she does not appear to be in distress. 2228: Physician observation continued. I did discuss code status with the patient's son MARTA. Given her extensive brain metastases, this patient would not be a candidate for mechanical ventilation resuscitation and the son did agree. I did discuss [facility] care and he did agree that this would be appropriate. Therefore the patient will be made a DNR DNI and case management will pursue [facility] care. 0228: Physician observation continued. The patient has been resting comfortably, she has no complaints. Patient will remain in the emergency department pending long term facility placement. The patient's outpatient medications have been reconciled and I did order these medications. At the end of my shift, the patient's care was turned over to my colleague, Dr. Susy Castro. MDM - Weakness Lab Data Result diagrams: 07/08/21 17:25 07/08/21 17:25 Labs: Lab Results 07/08/21 07/08/21 07/08/21 Range/Units 17:25 17:25 17:25 WBC 6.1 (4.8-10.8) X10*3/uL RBC 4.11 L (4.20-5.50) X10*6/uL Hgb 11.0 L (12.0-16.0) g/dl Hct 33.7 L (37-47) % MCV 82.0 (80-98) fL MCH 26.8 L (27.0-33.0) pg MCHC 32.6 (31.0-35.0) g/dl RDW 14.6 (11.0-16.0) % Plt Count 169 (160-400) X10*3/uL MPV 9.6 (9.4-12.3) fL Immature Gran % (Auto) 0.8 H (0.0-0.4) % Neut % (Auto) 81.1 H (45-73) % Lymph % (Auto) 9.0 L (20-40) % Churchill % (Auto) 6.7 (2-11) % Eos % (Auto) 2.1 (0-4) % Baso % (Auto) 0.3 (0-2) % Lymph # (Auto) 0.6 L (1.2-4.9) X10*3/uL Churchill # (Auto) 0.4 (0.1-1.2) X10*3/uL Eos # (Auto) 0.1 (0.0-0.4) X10*3/uL Baso # (Auto) 0.0 (0.0-0.2) X10*3/uL Abs Immat Gran (auto) 0.05 H (0.00-0.03) X10*3/uL Absolute Neuts (auto) 5.0 (2.0-8.3) X10*3/uL Absolute Nucleated RBC 0.000 (0.0-0.012) X10*3/uL Nucleated RBC % (auto) 0.0 (0.0-0.2) /100WBC PT 12.7 (9.9-13.0) SEC INR 1.1 (0.9-1.1) APTT 32.9 (24.1-38.0) SEC Sodium 141 (135-145) mmol/L Potassium 3.4 (3.3-5.1) mmol/L Chloride 107 (96-108) mmol/L Carbon Dioxide 25 (22-29) mmol/L Anion Gap 12 (12-20) BUN 17 H (9-16) mg/dL Creatinine 0.65 (0.5-1.4) mg/dL Estim Creat Clear Calc 81.3 Estimated GFR > 60 Random Glucose 114 (60-115) mg/dL Lactic Acid (0.5-2.0) mmol/L Calcium 9.6 (8.4-10.2) mg/dL Total Bilirubin 0.6 (0.0-1.0) mg/dL AST 26 (5-31) U/L ALT 18 (0-31) U/L Alkaline Phosphatase 87 (39-117) U/L Total Creatine Kinase 31 (26-140) U/L Troponin I High Sens (<3.5-17.0) ng/L B-Natriuretic Peptide (<100) pg/mL Total Protein 5.9 L (6.5-8.0) g/dL Albumin 3.3 L (3.5-5.0) g/dL Lipase 18 (8-78) U/L Urine Color Urine Appearance Urine pH (5.0-8.0) Ur Specific Austin (1.005-1.025) Urine Protein (NEG-TRACE) MG/DL Urine Glucose (UA) (NEG) MG/DL Urine Ketones (NEG) MG/DL Urine Blood (NEG) Urine Nitrite (NEG) Ur Leukocyte Esterase (NEG) Ethyl Alcohol mg/dL COVID-19 (CELESTE) (Negative) COVID-19 Clin Com 07/08/21 07/08/21 07/08/21 Range/Units 17:25 17:25 17:25 WBC (4.8-10.8) X10*3/uL RBC (4.20-5.50) X10*6/uL Hgb (12.0-16.0) g/dl Hct (37-47) % MCV (80-98) fL MCH (27.0-33.0) pg MCHC (31.0-35.0) g/dl RDW (11.0-16.0) % Plt Count (160-400) X10*3/uL MPV (9.4-12.3) fL Immature Gran % (Auto) (0.0-0.4) % Neut % (Auto) (45-73) % Lymph % (Auto) (20-40) % Churchill % (Auto) (2-11) % Eos % (Auto) (0-4) % Baso % (Auto) (0-2) % Lymph # (Auto) (1.2-4.9) X10*3/uL Churchill # (Auto) (0.1-1.2) X10*3/uL Eos # (Auto) (0.0-0.4) X10*3/uL Baso # (Auto) (0.0-0.2) X10*3/uL Abs Immat Gran (auto) (0.00-0.03) X10*3/uL Absolute Neuts (auto) (2.0-8.3) X10*3/uL Absolute Nucleated RBC (0.0-0.012) X10*3/uL Nucleated RBC % (auto) (0.0-0.2) /100WBC PT (9.9-13.0) SEC INR (0.9-1.1) APTT (24.1-38.0) SEC Sodium (135-145) mmol/L Potassium (3.3-5.1) mmol/L Chloride (96-108) mmol/L Carbon Dioxide (22-29) mmol/L Anion Gap (12-20) BUN (9-16) mg/dL Creatinine (0.5-1.4) mg/dL Estim Creat Clear Calc Estimated GFR Random Glucose (60-115) mg/dL Lactic Acid 1.3 (0.5-2.0) mmol/L Calcium (8.4-10.2) mg/dL Total Bilirubin (0.0-1.0) mg/dL AST (5-31) U/L ALT (0-31) U/L Alkaline Phosphatase (39-117) U/L Total Creatine Kinase (26-140) U/L Troponin I High Sens 36.0 H* (<3.5-17.0) ng/L B-Natriuretic Peptide 25 (<100) pg/mL Total Protein (6.5-8.0) g/dL Albumin (3.5-5.0) g/dL Lipase (8-78) U/L Urine Color Urine Appearance Urine pH (5.0-8.0) Ur Specific Austin (1.005-1.025) Urine Protein (NEG-TRACE) MG/DL Urine Glucose (UA) (NEG) MG/DL Urine Ketones (NEG) MG/DL Urine Blood (NEG) Urine Nitrite (NEG) Ur Leukocyte Esterase (NEG) Ethyl Alcohol < 10 mg/dL COVID-19 (CELESTE) (Negative) COVID-19 Clin Com 07/08/21 07/08/21 07/08/21 Range/Units 17:49 18:19 20:40 WBC (4.8-10.8) X10*3/uL RBC (4.20-5.50) X10*6/uL Hgb (12.0-16.0) g/dl Hct (37-47) % MCV (80-98) fL MCH (27.0-33.0) pg MCHC (31.0-35.0) g/dl RDW (11.0-16.0) % Plt Count (160-400) X10*3/uL MPV (9.4-12.3) fL Immature Gran % (Auto) (0.0-0.4) % Neut % (Auto) (45-73) % Lymph % (Auto) (20-40) % Churchill % (Auto) (2-11) % Eos % (Auto) (0-4) % Baso % (Auto) (0-2) % Lymph # (Auto) (1.2-4.9) X10*3/uL Churchill # (Auto) (0.1-1.2) X10*3/uL Eos # (Auto) (0.0-0.4) X10*3/uL Baso # (Auto) (0.0-0.2) X10*3/uL Abs Immat Gran (auto) (0.00-0.03) X10*3/uL Absolute Neuts (auto) (2.0-8.3) X10*3/uL Absolute Nucleated RBC (0.0-0.012) X10*3/uL Nucleated RBC % (auto) (0.0-0.2) /100WBC PT (9.9-13.0) SEC INR (0.9-1.1) APTT (24.1-38.0) SEC Sodium (135-145) mmol/L Potassium (3.3-5.1) mmol/L Chloride (96-108) mmol/L Carbon Dioxide (22-29) mmol/L Anion Gap (12-20) BUN (9-16) mg/dL Creatinine (0.5-1.4) mg/dL Estim Creat Clear Calc Estimated GFR Random Glucose (60-115) mg/dL Lactic Acid (0.5-2.0) mmol/L Calcium (8.4-10.2) mg/dL Total Bilirubin (0.0-1.0) mg/dL AST (5-31) U/L ALT (0-31) U/L Alkaline Phosphatase (39-117) U/L Total Creatine Kinase (26-140) U/L Troponin I High Sens 37.2 H* (<3.5-17.0) ng/L B-Natriuretic Peptide (<100) pg/mL Total Protein (6.5-8.0) g/dL Albumin (3.5-5.0) g/dL Lipase (8-78) U/L Urine Color YELLOW Urine Appearance CLEAR Urine pH 6.5 (5.0-8.0) Ur Specific Austin 1.010 (1.005-1.025) Urine Protein TRACE (NEG-TRACE) MG/DL Urine Glucose (UA) NEG (NEG) MG/DL Urine Ketones NEG (NEG) MG/DL Urine Blood NEG (NEG) Urine Nitrite NEG (NEG) Ur Leukocyte Esterase NEG (NEG) Ethyl Alcohol mg/dL COVID-19 (CELESTE) Negative (Negative) COVID-19 Clin Com See Note ECG Data Attestation: I personally reviewed and interpreted this ECG as follows: Interpretation: 1753: Normal sinus rhythm with a rate 90, normal WI interval, QRS duration and QTC interval, Q-wave noted in V1 and V2, no ST segment elevation. No ST segment depression. No PACs, no PVCs, no T-wave abnormalities. No old EKG for comparison. Discharge Plan Discharge Clinical Impression: Breast cancer, Brain metastases, Lung metastases Patient Disposition: Xfer [facility] Prescriptions: No Action clonazepam 0.5 mg tablet 1 tab PO DAILY RF: 0 sertraline 100 mg tablet 1 tab PO DAILY RF: 0 clonazepam 1 mg tablet 1 tab PO BID RF: 0 brimonidine 0.2 % drops 1 drp ophthalmic-Right BID RF: 0 mirtazapine 45 mg tablet 1 tab PO BEDTIME RF: 0 gabapentin 100 mg capsule 1 cap PO BID RF: 0 cefuroxime axetil 500 mg tablet 1 tab PO BID RF: 0 letrozole 2.5 mg tablet 1 tab PO DAILY RF: 0 timolol maleate 0.5 % drops 1 drp ophthalmic (eye) BID RF: 0 Restasis 0.05 % dropperette 1 drp ophthalmic (eye) BID RF: 0 Latuda 40 mg tablet 1 tab PO DAILY RF: 0
[2021-07-08 17:27] VITALS: PULSE 106; O2SAT 96
[2021-07-08 17:35] LABS: MANUAL DIFF FLAG NO
[2021-07-08 17:37] LABS: Basophils Percent Auto 0.3 % (0-2); Eosinophils Absolute Auto 0.1 X10*3/uL (0.0-0.4); Eosinophils Percent Auto 2.1 % (0-4); Hematocrit 33.7 % (37-47); Imm Gran Abs Auto 0.05 X10*3/uL (0.00-0.03); Imm Gran Pct Auto 0.8 % (0.0-0.4); Lymphocytes Absolute Auto 0.6 X10*3/uL (1.2-4.9); Mean Corpuscular HGB Conc 32.6 g/dl (31.0-35.0); Mean Corpuscular Hemoglobin 26.8 pg (27.0-33.0); Mean Platelet Volume 9.6 fL (9.4-12.3); Monocytes Absolute Auto 0.4 X10*3/uL (0.1-1.2); Monocytes Percent Auto 6.7 % (2-11); Neutrophils Percent Auto 81.1 % (45-73); Platelet Count 169 X10*3/uL (160-400); Red Blood Count 4.11 X10*6/uL (4.20-5.50); Red Cell Distribution Width 14.6 % (11.0-16.0); White Blood Count 6.1 X10*3/uL (4.8-10.8)
[2021-07-08 17:42] LABS: INTERNATIONAL NORM RATIO 1.1 (0.9-1.1); Prothrombin Time 12.7 SEC (9.9-13.0)
[2021-07-08 17:45] LABS: Partial Thromboplastin Time 32.9 SEC (24.1-38.0)
[2021-07-08 17:56] LABS: Lactic Acid 1.3 mmol/L (0.5-2.0)
[2021-07-08 18:00] LABS: Ethanol < 10 mg/dL
[2021-07-08 18:04] LABS: Alanine Aminotransferase 18 U/L (0-31); Albumin Level 3.3 g/dL (3.5-5.0); Alkaline Phosphatase 87 U/L (39-117); Anion Gap 12 (12-20); Aspartate Amino Transferase 26 U/L (5-31); Bilirubin Total 0.6 mg/dL (0.0-1.0); Blood Urea Nitrogen 17 mg/dL (9-16); Calcium 9.6 mg/dL (8.4-10.2); Carbon Dioxide 25 mmol/L (22-29); Chloride 107 mmol/L (96-108); Creatinine Clr Calc Pharmacy 81.3; Estimated Glomerular Filt Rate > 60; Glucose Random 114 mg/dL (60-115); Lipase 18 U/L (8-78); Potassium 3.4 mmol/L (3.3-5.1); Sodium 141 mmol/L (135-145); Total Protein 5.9 g/dL (6.5-8.0)
[2021-07-08 18:06] VITALS: BP 90/66; PULSE 93; RESP 18; O2SAT 95
[2021-07-08] MEDS: 0.9 % Sodium Chloride 1,000 ML 999 ML IV (18:06)
[2021-07-08 18:08] LABS: B Type Natriuretic Peptide 25 pg/mL (<100)
[2021-07-08 18:20] LABS: COVID-19 Test Negative (Negative); IDNOW Serial# 9DD0AD1C
[2021-07-08 18:26] LABS: Appearance Urine CLEAR; Color Urine YELLOW; Glucose Urine UA NEG (NEG); Leukocyte Esterase Urine NEG (NEG); Nitrite Urine NEG (NEG); PH 6.5 (5.0-8.0); Urine Blood NEG (NEG); Urine Ketones NEG (NEG); Urine Protein TRACE MG/DL (NEG-TRACE)
[2021-07-08 19:10] VITALS: BP 115/71; PULSE 80; RESP 24; TEMP 37.6; O2SAT 96
--- NOTE | 2021-07-08 19:11 | PC.NURSE ---
Pt resting on stretcher in NAD, breathing with ease on RA. Pt arousable to voice but minimally responsive, only shaking head yes or no to questions. Pt denies pain/discomfort. When asked if she's comfortable, pt nods yes. Pt transferred to via sheet draw without incidence. Purewick in place in efforts to maintain skin integrity. Pt IVF infusing appropriately, NSR on media monitor, VSS. Pt bed in low locked position, rails raised, call avendano within reach, fall alarm active and audible, red fall prevention socks on, fall risk bracelet in place and fall sign posted outside of room. Per Dr Dodge, dispo is still pending. Pt likely to be CM or admit.
--- NOTE | 2021-07-08 19:23 | PC.NURSE ---
This RN spoke to pt's son Glen Farooq, , who would like to be contacted with any updates on pt. Glen requesting pt be placed in rehab if not admitted to hospital as he has concerns about pt's safety if she were to go home at this time
[2021-07-08 20:13] VITALS: BP 110/65; PULSE 84; RESP 13; O2SAT 100
[2021-07-08 21:25] LABS: Troponin-I High Sensitivity 37.2 ng/L (<3.5-17.0)
--- NOTE | 2021-07-08 21:27 | PC.NURSE ---
Won RN rec'd critical trop (37.2) from lab, notified this RN. This RN witnessed Ky notify Dr Dodge as well.
--- NOTE | 2021-07-08 22:30 | MHC.CM.ED ---
Addendum entered by Lucy Hernández 07/08/21 23:11: Dr. Nino is the PCP. Pt active with [facility]. Referral placed to [facility]. Pt has [employer] insurance. Glen requested facility in [place]. [employer] insurance. Referrals placed to [facility], [facility] and [facility]. Did not call [facility] or [facility] at this hour. Will need to be contacted in the am. Addendum entered by Lucy Hernández 07/08/21 22:49: Pt has primary metastatic breast cancer with lung and brain mets. Pt was seen at [facility] from 06/18-07/01 and d/c to [place]. Requested to return to ED within one day. Was at [facility] for 24 hours and demanded to go home. Returned to [facility] on 07/04 and was d/c on 07/05 with [facility] services. Pt [facility]NA sent pt to ED today, as she is too sick to be home. Unfortunately, does not have access to CM notes from 07/05 [facility], so CM cannot determine what VNA was seeing pt. Will send referral to [facility] to see if they were seeing pt. Will need PCP. Original Note: Dr. Dodge spoke with CM regarding need for pt to be placed in a halfway with hospice, as family is unable to care for her. Dr. Dodge spoke with son, Glen ([phone]), who is agreeable to this plan of care. Pt has advanced lung cancer with metastasis to the brain. Pt is very sleepy, but rousable. called Glen to discuss plan of care and where he would like me to refer his mother to. Glen stated he thought his mother was going to [facility] to get stronger. CM explained that his mother was very ill and that she would not be going to rehab, but would be cared for at the halfway with hospice to keep her comfortable. Glen asked if the hospice would help his mother . Explained that hospice would help his mother be comfortable through the dying process. Glen then told the CM that his mother wanted CPR. Discussed with Glen that his mother would stay overnight in the ED, that I could speak with the Doctor and that I would place referrals in [place] at facilities, the places on [address] his first choice. Explained to Glen that he should come in in the morning to see his mother and then the CM and doctor could meet with him to discuss his mother's plan of care moving forward.. CM than spoke with Dr. Dodge regarding above conversation. Dr. Dodge called Glen and discussed the gravity of his mother's condition and that she will not recover from her illness. Explained to Glen that hospice is necessary to keep her comfortable and support her through the dying process. Dr. Dodge spoke at length with patient regarding code status. Pt is a DNR/DNI. CM will place referral with [facility] , [facility], and [facility] for placement with hospice. Pt has [facility] insurance. CM to follow for d/c needs.
[2021-07-09 01:20] VITALS: PULSE 78; RESP 11; O2SAT 100
--- NOTE | 2021-07-09 01:51 | PC.NURSE ---
Pt with purewick in place. This RN notes no urine in suction canister. Pt assessed for incontinence. Pt is not wet, does not require inc care. Pt bladder scanned, has ~200mL in bladder. Pt HB in low locked position, rails raised, call avendano within reach. Pt remains on hall monitor. BP not assessed at this time d/t CAT BREEDER status.
[2021-07-09 10:10] VITALS: BP 98/73; PULSE 100; RESP 12; O2SAT 100
[2021-07-09] MEDS: Sertraline HCL 100 MG TABLET PO (10:42)
[2021-07-09] MEDS: clonazePAM 0.5 MG TABLET PO (10:42)
[2021-07-09] MEDS: clonazePAM 1 MG TABLET PO ×2 (10:42→20:13)
[2021-07-09] MEDS: Gabapentin 100 MG CAPSULE PO ×2 (10:42→20:14)
--- NOTE | 2021-07-09 10:46 | PC.NURSE ---
Pt alert, oriented to self and place, vss, reports chest discomfort with inhalation. Pt given breakfast, requested tea, ate half. Incontinent care done. Some meds documented as not given because pt states she has them at home and would rather have those at home. Pt redirected by this fha underwriter of her current status and plan of care. Pt resting quietly, no apparent distress noted.
--- NOTE | 2021-07-09 12:00 | PC.NURSE ---
Pt's son Glen at bedside feeding her lunch. No c/o pain/discomfort. No apparent distress noted. This typewriter aligner followed up with case management regarding plan of care.
[2021-07-09 12:36] VITALS: BP 109/66; PULSE 84; RESP 19; TEMP 36.9; O2SAT 97
--- NOTE | 2021-07-09 12:57 | MHC.CM.ED ---
Patient remains in ER. [facility] does not have a bed. Clinical updates sent to [facility] and [facility]. Continue to monitor for d/c needs.
[2021-07-09 14:23] VITALS: BP 109/64; PULSE 101; RESP 19; TEMP 37.1; O2SAT 95
[2021-07-09 20:12] VITALS: BP 100/65; PULSE 87; RESP 16
[2021-07-09] MEDS: Mirtazapine 15 MG TABLET 45 MG PO (20:14)
--- NOTE | 2021-07-09 20:20 | PC.NURSE ---
Pt medicated per DEC, this RN contacting pharmacy regarding eye drops. Pharmacy to bring to bedside. VSS at this time. Pt resting in bed in [facility].
[2021-07-09] MEDS: timoloL maleate 0.5 % Oph Sol 5 ML DRBTL 1 DROP EYE-BOTH (20:42)
[2021-07-09] MEDS: Brimonidine Tartrate 0.2% Oph 5 ML BOTTLE 1 DROP EYE-RIGHT (20:42)
--- NOTE | 2021-07-09 20:44 | PC.NURSE ---
Medicated with eye drops per DEC.
[2021-07-10] VITALS (9 sets, daily range): BP systolic 92–119; BP diastolic 61–70; PULSE 78–94; RESP 14–18; TEMP 36.8–37.1; O2SAT 95–99
--- NOTE | 2021-07-10 03:34 | PC.NURSE ---
Pt found to be incontinent of urine, purewick in place. Pt provided with robert care and a complete bed change. Pt resting in bed, very drowsy but able to nod to answer questions. VSS. Continue to monitor.
--- NOTE | 2021-07-10 06:21 | PC.NURSE ---
Pt remains asleep in bed at this time in NAD, visible chest rise noted. VSS. Pt noted to be clean/dry at this time, purewick draining easily into suction canister. Pt repositioned onto left side at this time, pillows added for comfort. Lights dim for comfort.
[2021-07-10] MEDS: Brimonidine Tartrate 0.2% Oph 5 ML BOTTLE 1 DROP EYE-RIGHT ×2 (10:30→22:18)
[2021-07-10] MEDS: Sertraline HCL 100 MG TABLET PO (10:31)
[2021-07-10] MEDS: timoloL maleate 0.5 % Oph Sol 5 ML DRBTL 1 DROP EYE-BOTH ×2 (10:31→22:18)
[2021-07-10] MEDS: clonazePAM 1 MG TABLET PO ×2 (10:31→22:22)
[2021-07-10] MEDS: Gabapentin 100 MG CAPSULE PO ×2 (10:31→22:22)
[2021-07-10] MEDS: clonazePAM 0.5 MG TABLET PO (10:31)
[2021-07-10] MEDS: Letrozole 2.5 MG TABLET PO (11:28)
[2021-07-10] MEDS: Lurasidone HCl 40 MG TABLET PO (11:28)
--- NOTE | 2021-07-10 14:24 | PC.NURSE ---
assisted to eat mashed potatoes. feels too weak to use upper arms.
--- NOTE | 2021-07-10 15:56 | PC.NURSE ---
PATIENT WAS REPOSITION BY THIS PCT ON LEFT SIDE .
--- NOTE | 2021-07-10 21:27 | PC.NURSE ---
PATIENT REFUSED DINNER ,BUT TOOK SIPS OF ENSURE
--- NOTE | 2021-07-10 21:28 | PC.NURSE ---
patient was reposition on right side .
[2021-07-10] MEDS: Mirtazapine 15 MG TABLET 45 MG PO (22:22)
--- NOTE | 2021-07-10 22:26 | PC.NURSE ---
Medicated per DEC. Pills crushed and given in pudding per pt request. Pt eating half of a pudding and a few sips of water, full feed. VSS.
--- NOTE | 2021-07-11 04:50 | PC.NURSE ---
pt non-verbal at this time . Pt will making moaning noise when being repositioned. pt bed changed and robert area clean. Pt repositioned. Plan is to find hospice placement. Will continue to monitor for sign of distress or discomfort.
[2021-07-11 07:50] VITALS: BP 109/73; PULSE 82; RESP 15; TEMP 35.8; O2SAT 97
--- NOTE | 2021-07-11 09:26 | MHC.CM.ED ---
Patient remains in ER. [facility] is not able to offer a bed. Clinical updates sent via [facility] to [facility]. Continue to monitor for d/c needs.
[2021-07-11] MEDS: Sertraline HCL 100 MG TABLET PO (10:58)
[2021-07-11] MEDS: Brimonidine Tartrate 0.2% Oph 5 ML BOTTLE 1 DROP EYE-RIGHT ×2 (10:59→21:53)
[2021-07-11] MEDS: clonazePAM 1 MG TABLET PO ×2 (10:59→21:53)
[2021-07-11] MEDS: clonazePAM 0.5 MG TABLET PO (10:59)
[2021-07-11] MEDS: timoloL maleate 0.5 % Oph Sol 5 ML DRBTL 1 DROP EYE-BOTH ×2 (10:59→21:53)
[2021-07-11] MEDS: Gabapentin 100 MG CAPSULE PO ×2 (10:59→21:52)
[2021-07-11 11:09] VITALS: BP 119/77; PULSE 94; RESP 13; O2SAT 94
--- NOTE | 2021-07-11 11:10 | PC.NURSE ---
pt'morris is att bedside, pt ate 100% of oatmeal and apple juice.
[2021-07-11] MEDS: Letrozole 2.5 MG TABLET PO (12:05)
[2021-07-11] MEDS: Lurasidone HCl 40 MG TABLET PO (12:05)
[2021-07-11 14:00] VITALS: BP 99/70; PULSE 88; RESP 16; O2SAT 95
--- NOTE | 2021-07-11 17:05 | MHC.CM.ED ---
[facility] hospice is following. [facility] and [facility] are reviewing for beds. CM met with pt. Pt very weak, but was able to verbally respond to CM. Pt asked what is going on? . CM explained to patient that her cancer is worse and that she will need help caring for herself. Pt aware that cancer is in her brain. CM explained that we have 2 facilities that are reviewing her case for a bed. Pt is aware that [facility] is following her and will keep her comfortable when she is at the custodial. When asked if she was having pain, pt said Yes , but was unable to say where. Pt took sip of water when offered. Pt very weak. CM to follow for d/c needs.
[2021-07-11] MEDS: Mirtazapine 15 MG TABLET 45 MG PO (21:53)
[2021-07-11 22:01] VITALS: BP 109/72; PULSE 105; RESP 14; TEMP 36.6; O2SAT 97
--- NOTE | 2021-07-11 22:05 | PC.NURSE ---
medicated pt per Mar. Pt is able to open her eye with stimulus. Will discuss with provider plan to change po medication to IV due to pt being lethargic.
[2021-07-12] VITALS: BP 113/72; PULSE 97; RESP 15; O2SAT 97
[2021-07-12 02:00] VITALS: BP 120/80; PULSE 97; RESP 13
[2021-07-12 04:42] VITALS: BP 121/79; PULSE 94; RESP 12
--- NOTE | 2021-07-12 11:39 | PC.NURSE ---
speech and swallow eval placed per md verbal order. awaiting eval prior to medical billing manager d/t finding meds pocketed in pt mouth from day prior.
--- NOTE | 2021-07-12 12:02 | MHC.CM.ED ---
Patient remains in ER. [facility] is only facility able to offer a bed within 20 miles. Spoke with Glen via telephone at [phone]. He has to speak with his family and will get back to case management. Continue to monitor for d/c needs.
--- NOTE | 2021-07-12 12:42 | PC.NURSE ---
continuing to await swallow eval. multiple rn and md aware of pt status. pt unable to sit up or hold her head up to properly take po medications. md aware.
[2021-07-12] MEDS: timoloL maleate 0.5 % Oph Sol 5 ML DRBTL 1 DROP EYE-BOTH (13:08)
[2021-07-12] MEDS: Brimonidine Tartrate 0.2% Oph 5 ML BOTTLE 1 DROP EYE-RIGHT (13:08)
--- NOTE | 2021-07-12 13:30 | MHC.MBSS ---
Order for bedside dysphagia evaluation received. HOURLY SHIFT spoke with RN. Patient had medication pocketed from the previous day. Patient did not tolerate oral care and is not following commands. Patient seen this afternoon. Patient groaned and moved momentarily to sternal rub, but would not open eyes and did not remain awake. Patient is not managing secretions. Anterior loss of secretions. Patient did not follow command to swallow secretions. Patient is not appropriate for PO trials at this time due to mental status. Recommend NPO and PO trials when mental status improves. MD and RN notified via [employer] Message. HOURLY SHIFT will continue to follow.
[2021-07-12 14:00] VITALS: PULSE 90; RESP 16
--- NOTE | 2021-07-12 14:08 | PC.NURSE ---
npo per swallow/speech
--- NOTE | 2021-07-12 15:38 | MHC.CM.ED ---
Pt son/HCP Glen called CM. CM explained that [facility] has offered a bed. Glen has accepted a bed at [facility]. Glen aware that [facility] has accepted his mother. Glen is questioning if his mother needs hospice. Glen feels if we feed her mother, she will be stronger and we can treat her cancer. CM explained to Glen that her breast cancer has metastasized to her brain and that she appears to be in the dying process. Explained that Speech Therapy is assessing if pt can safely swallow. Encouraged Glen to come to ED to see his mother. Glen states he will come in. Explained to Glen to ask for CM. Registration informed of son's possible visit tonight. Glen agreeable to assisted at this point, but states he may want her to go home. Explained to Glen that he could speak with hospice if he decides to take his mother home from the assisted at some time. Explained to Glen that his mother would need 24/7 care and that even with Hospice coming in, the family would need to care for patient most of day and night. Glen asked if CM could speak with his aunts to explain his mother's medical condition. CM explained that I would like to speak with one family member and that they coyld then explain it to the rest of the family. Pt's aunt Taylor Harris called. CM explained the plan of care and the patients medical condition. Per Taylor Harris, her nephew, Glen told her Aura was not eating. CM explained to Taylor Harris, with permission of Glen, that her niece's breast cancer had metastasized to her brain and that in the opinion of her providers, Aura is in the process of dying, how long that process takes is unknown. Taylor Harris aware that Speech Therapy has recommended pt does not eat, as she is a choking risk. Taylor Harris tells CM that her nephew cannot care for his mother, and that the assisted ([facility]) and hospice is best. Taylor Harris states she will call her nephew to speak with him about what she believes are her nieces wishes. CM stressed that Taylor Harris can call at anytime for updates. [facility] aware of bed acceptance at [facility]. Expect pt to be transferred tomorrow. CM to follow for d/c needs.
--- NOTE | 2021-07-12 19:37 | PC.NURSE ---
PT family member is in room, upset because PT is complaining of being hungry and thirty. PT and family educated on aspiration risk and NPO status. PT mouth given wet swab and ice chips given individually. PT is scheduled for swallow test in the morning.
[2021-07-12 20:40] VITALS: BP 113/76; PULSE 99; RESP 14; TEMP 36.8; O2SAT 96
--- NOTE | 2021-07-12 22:11 | PC.NURSE ---
PT did not receive night meds due to NPO status. Per report from previous nurse, PT could not effectively swallow her pills. PT is awaiting swallow test tomorrow morning.
[2021-07-12 22:12] VITALS: BP 113/77; PULSE 98; RESP 12; O2SAT 95
--- NOTE | 2021-07-13 04:57 | PC.NURSE ---
PATIENT REMAINS IN A HOSPITAL BED SINCE BEING PLACED IN ONE DURING HER FIRST 24 HOURS OF HER STAY WITHIN THE ED. PT HAS A PUREWICK IN PLACE W/MINIMAL URINE DRAINAGE. PT IS VERY EASILY AROUSABLE, STATING HI HONEY WHEN NURSE ENTERED ROOM. PT RESP HAS BEEN 10-12 THROUGHOUT THE NIGHT W/ O2 SAT OF 93-94. RESP EVEN & UNLABORED, PT APPEARS VERY COMFORTABLE. PT REMAINS NPO UNTIL SEEN BY SPEECH TODAY
--- NOTE | 2021-07-13 05:30 | PC.NURSE ---
PTS SKIN ASSESSMENT TO BE HELD UNTIL AM. PT IS SLEEPING PEACEFULLY, W/PAIN ADEQUATELY MANAGED AT THIS TIME. VS WNL, PT HAD MOMENTS OF RSTLESSNESS THROUGHOUT THE NIGHT. BUT IS NOW CALM, AND SLEEPING.
[2021-07-13 07:17] VITALS: BP 104/78
--- NOTE | 2021-07-13 09:11 | PC.NURSE ---
pt has not yet seen speech for a swallow eval. she remains NPO per shift report as pt was found with pills in her mouth and having difficulty eating
--- NOTE | 2021-07-13 09:12 | MHC.CM.PN ---
Received notification from [facility] that they no longer have a bed for this patient. [facility] does. They would be willig to transfer patient to [facility] when a bed opens up. Spoke with patient's son, Glen via telephone at [phone]. Glen agreeable. [facility] aware. Continue to monitor for d/c needs.
--- NOTE | 2021-07-13 09:36 | PC.NURSE ---
pt incontinent of urine. full bale coverer and skin assessment complete. pt skin warm, dry and intact. will replace periwick. speech to see the pt to assess swallowing before this RN can give 0900 medications.
[2021-07-13 10:35] LABS: COVID-19 Test Negative (Negative); IDNOW Serial# 08D9AD1C
--- NOTE | 2021-07-13 10:54 | PC.NURSE ---
per speech and swallow report TC: Pur?ed solids, thin liquids via tsp, medications crushed in pur?e, aspiration precautions, and strict 1:1 assist with all feeding
--- NOTE | 2021-07-13 11:11 | PC.NURSE ---
0900 medications given late as orders from speech just received.
[2021-07-13] MEDS: Gabapentin 100 MG CAPSULE PO (11:49)
[2021-07-13] MEDS: clonazePAM 0.5 MG TABLET PO (11:49)
[2021-07-13] MEDS: Letrozole 2.5 MG TABLET PO (11:49)
[2021-07-13] MEDS: clonazePAM 1 MG TABLET PO (11:49)
[2021-07-13] MEDS: Sertraline HCL 100 MG TABLET PO (11:49)
[2021-07-13] MEDS: Brimonidine Tartrate 0.2% Oph 5 ML BOTTLE 1 DROP EYE-RIGHT (11:50)
[2021-07-13] MEDS: timoloL maleate 0.5 % Oph Sol 5 ML DRBTL 1 DROP EYE-BOTH (11:50)
[2021-07-13] MEDS: Lurasidone HCl 40 MG TABLET PO (11:52)
--- NOTE | 2021-07-13 12:07 | MHC.SL.SWA ---
Speech Pathologist Impression: Risk of Aspiration Oralpharyngeal Dysphagia Risk of Aspiration Due to: Medically Fragile Poor PO Intake Reduced Cognition Dysphasia Diet Status: Upgrade Liquid Consistency and Strategies for Safe Swallow: Liquid Intake Recommendation: Thin Liquid Intake Strategies: No Straws Liquids by Teaspoon Only Solid Food Consistency: Dietary Recommendations: Pureed (NDD1) Additional Modifications to Solid Foods: Medications crushed in puree. Strict aspiration precautions and 1:1 assist with feeding. Oral Medication Intake: Crushed with Puree Compensatory Strategies and Precautions to be Taken for Safe Swallow: Sitting Upright (90 deg) No Straw Liquids from Spoon Small Bites and Sips Alternate Liquids/Solids Oral Check Supervision While Eating and Drinking for Safe Swallow: Total Assistance Swallowing Recommended Treatments: Compens. Strategy Educat. Recommendation for Speech: Inpatient Speech Therapy 1/x day during pt's hospitalization. Pt may require continued ST upon her transition to the next level of care pending possible transition to Hospice care. Heel Cementer Machine Clinican/Clinical Fellow: No Supervisory Statement: I have reviewed and agree with the student/clinical fellow's documentation: N/A Speech Language Pathologist: Yesy Norton M.A., CCC-PEOPLESOFT DEVELOPER
--- NOTE | 2021-07-13 12:08 | PC.NURSE ---
crushed meds in apple sauce, cleared mouth with each swallow. pt tolerated well.
--- NOTE | 2021-07-13 14:52 | PC.NURSE ---
multiple attempts made to contact [facility] without answer from an RN.
== END 2021-07-13 14:52 ==
PROVIDERS: Emergency Medicine; Emergency Provider Emergency Medicine Emergency Medical Services
DX: R62.7 Adult failure to thrive (principal); C50.919 Malignant neoplasm of unspecified site of unspecified female breast; C78.00 Secondary malignant neoplasm of unspecified lung; C79.31 Secondary malignant neoplasm of brain; R06.02 Shortness of breath; R07.89 Other chest pain; R51.9 Headache, unspecified; M79.10 Myalgia, unspecified site; Z20.822 Contact with and (suspected) exposure to COVID-19; Z79.899 Other long term (current) drug therapy
CPT/HCPCS: 36415; 70450; 71046; 80053; 81003; 82077; 82550; 83605; 83690; 83880; 84484; 85025; 85610; 85730; 87635; 93005; 96360; 99285

== ENCOUNTER 2021-07-24 05:45 | Emergency (ER) | payer MEDICARE, SELFPAY ==
--- NOTE | ~2021-07-24 | CT_ITS ---
EXAMINATION: CT CERVICAL SPINE WITHOUT CONTRAST; UNENHANCED CT OF THE HEAD. CLINICAL INFORMATION: Neck pain. Fall. History of metastatic breast cancer. COMPARISON: CT head 07/04/2021, cervical spine radiograph 10/27/2016, CT head 07/08/2021 TECHNIQUE: Routine unenhanced CT of the head with multiple coronal and sagittal reformatted images; routine unenhanced CT of the cervical spine with multiple coronal and sagittal reformatted images. This CT examination was performed using dose optimization techniques as appropriate, variously including the following: *Automated exposure control *Adjustment of mA and/or kV according to patient size (this includes techniques or standardized protocols for targeted exams where dose is matched to indication/reason for exam; i.e. extremities or head) *Use of iterative reconstruction technique DLP: 1114 mGy-cm FINDINGS: CT head: Multiple intraparenchymal masses are present throughout the brain. Prominent lesions include a 1.7 cm left temporal occipital lesion, a 1.3 cm anterior right frontal lesion, a 1.4 cm anterior left frontal lesion. Each of these lesions is unchanged in size compared with 07/08/2021. All lesions demonstrate interval increased density compared with 07/08/2021 with heterogeneous internal density measuring approximately 60-90 Hounsfield units. Surrounding parenchymal hypodensity related T2 lesions in a configuration suspicious for vasogenic edema is unchanged in extent compared with 07/08/2021 and results in local sulcal effacement without lobar herniation. No abnormal extra-axial fluid collections are visualized. Mild diffuse commensurate prominence of ventricles and sulci aside from the areas of local sulcal effacement related to vasogenic edema described above is unchanged compared with 07/08/2021. No acute infarcts are visualized. Bilateral ocular lens extractions are noted. 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 No significant opacification of the visualized paranasal sinuses, mastoid air cells and middle ear cavities is identified with internal note made of probable subcentimeter mucosal retention cyst partially included within the image [id number] within the right maxillary sinus. CT cervical spine: The incidentally visualized lung apices demonstrate multiple right upper lobe pulmonary nodules with variously well-defined smooth and age-related margins ranging in size up to 9 mm in maximum dimension. A 9 mm nodule measured 6 mm in diameter compared with 07/04/2021 based on contemporaneous evaluation of the 07/04/2021 examination. Furthermore, partial visualization is made of right upper lobe pulmonary nodule is not fully included within the image [id number] which appear new compared with 07/04/2021. Additionally multifocal partially confluent reticular opacities are present in the right upper pulmonary lobe. Incidental note is made of paraseptal emphysematous changes. No fractures or acute appearing subluxations of the cervical spine are visualized. Moderate intervertebral disc space narrowing, prominent anterior endplate osteophytosis and mild posterior endplate osteophytosis is noted at C4-C5, C5-C6 and C6-C7. Incidental note is made of multifocal dental partial dysraphic features of the spinous processes within the cervical spine. Mild straightening of the cervical lordosis which may be related to patient positioning. No prevertebral fluid collections or soft tissue inflammatory changes. No cervical lymphadenopathy. CT/CT head/brain wo con IMPRESSION: CT head: -Multiple intraparenchymal metastatic lesions with interval development of intralesional confluent petechial hemorrhage and/or calcification new compared with 07/08/2021 most likely representing treatment related changes. Specifically, the lesions demonstrate nearly confluent heterogeneous density measuring approximately 60-90 Hounsfield units which could represent hemorrhage and/or calcification. Vasogenic edema surrounding the lesions is unchanged in extent compared with 07/08/2021 and results in local sulcal effacement without associated lobar herniation. History of metastatic breast cancer. -No evidence of intracranial traumatic hemorrhage or acute infarcts. CT cervical spine: -No acute abnormalities of the cervical spine. No acute fractures or subluxations. -Within the incidentally visualized lung apices, multiple right upper lobe pulmonary nodules increased in size and number compared with CT of the chest 07/04/2021 with associated scattered multifocal interstitial disease. Findings may represent a combination of progressive metastatic disease and infection and may be evaluated with dedicated CT of the thorax as clinically indicated.
--- NOTE | ~2021-07-24 | XR_ITS ---
EXAMINATION: XR CHEST CLINICAL INFORMATION: Fall COMPARISON: 07/04/2021 TECHNIQUE: Frontal view of the chest was obtained. FINDINGS: Patchy airspace opacities within the right perihilar lung extending into the upper lung as seen on prior chest radiograph and CT. No significant changes are noted. No new pulmonary consolidations. No pleural effusion or pneumothorax. Heart size is normal. No acute osseous abnormality. Right axillary surgical clips. XR/XR chest 1V IMPRESSION: Similar-appearing right-sided airspace opacities. No new pulmonary process identified.
--- NOTE | ~2021-07-24 | CT_ITS ---
EXAMINATION: CT CERVICAL SPINE WITHOUT CONTRAST; UNENHANCED CT OF THE HEAD. CLINICAL INFORMATION: Neck pain. Fall. History of metastatic breast cancer. COMPARISON: CT head 07/04/2021, cervical spine radiograph 10/27/2016, CT head 07/08/2021 TECHNIQUE: Routine unenhanced CT of the head with multiple coronal and sagittal reformatted images; routine unenhanced CT of the cervical spine with multiple coronal and sagittal reformatted images. This CT examination was performed using dose optimization techniques as appropriate, variously including the following: *Automated exposure control *Adjustment of mA and/or kV according to patient size (this includes techniques or standardized protocols for targeted exams where dose is matched to indication/reason for exam; i.e. extremities or head) *Use of iterative reconstruction technique DLP: 1114 mGy-cm FINDINGS: CT head: Multiple intraparenchymal masses are present throughout the brain. Prominent lesions include a 1.7 cm left temporal occipital lesion, a 1.3 cm anterior right frontal lesion, a 1.4 cm anterior left frontal lesion. Each of these lesions is unchanged in size compared with 07/08/2021. All lesions demonstrate interval increased density compared with 07/08/2021 with heterogeneous internal density measuring approximately 60-90 Hounsfield units. Surrounding parenchymal hypodensity related T2 lesions in a configuration suspicious for vasogenic edema is unchanged in extent compared with 07/08/2021 and results in local sulcal effacement without lobar herniation. No abnormal extra-axial fluid collections are visualized. Mild diffuse commensurate prominence of ventricles and sulci aside from the areas of local sulcal effacement related to vasogenic edema described above is unchanged compared with 07/08/2021. No acute infarcts are visualized. Bilateral ocular lens extractions are noted. 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 No significant opacification of the visualized paranasal sinuses, mastoid air cells and middle ear cavities is identified with internal note made of probable subcentimeter mucosal retention cyst partially included within the image [id number] within the right maxillary sinus. CT cervical spine: The incidentally visualized lung apices demonstrate multiple right upper lobe pulmonary nodules with variously well-defined smooth and age-related margins ranging in size up to 9 mm in maximum dimension. A 9 mm nodule measured 6 mm in diameter compared with 07/04/2021 based on contemporaneous evaluation of the 07/04/2021 examination. Furthermore, partial visualization is made of right upper lobe pulmonary nodule is not fully included within the image [id number] which appear new compared with 07/04/2021. Additionally multifocal partially confluent reticular opacities are present in the right upper pulmonary lobe. Incidental note is made of paraseptal emphysematous changes. No fractures or acute appearing subluxations of the cervical spine are visualized. Moderate intervertebral disc space narrowing, prominent anterior endplate osteophytosis and mild posterior endplate osteophytosis is noted at C4-C5, C5-C6 and C6-C7. Incidental note is made of multifocal dental partial dysraphic features of the spinous processes within the cervical spine. Mild straightening of the cervical lordosis which may be related to patient positioning. No prevertebral fluid collections or soft tissue inflammatory changes. No cervical lymphadenopathy. CT/CT cervical spine wo con IMPRESSION: CT head: -Multiple intraparenchymal metastatic lesions with interval development of intralesional confluent petechial hemorrhage and/or calcification new compared with 07/08/2021 most likely representing treatment related changes. Specifically, the lesions demonstrate nearly confluent heterogeneous density measuring approximately 60-90 Hounsfield units which could represent hemorrhage and/or calcification. Vasogenic edema surrounding the lesions is unchanged in extent compared with 07/08/2021 and results in local sulcal effacement without associated lobar herniation. History of metastatic breast cancer. -No evidence of intracranial traumatic hemorrhage or acute infarcts. CT cervical spine: -No acute abnormalities of the cervical spine. No acute fractures or subluxations. -Within the incidentally visualized lung apices, multiple right upper lobe pulmonary nodules increased in size and number compared with CT of the chest 07/04/2021 with associated scattered multifocal interstitial disease. Findings may represent a combination of progressive metastatic disease and infection and may be evaluated with dedicated CT of the thorax as clinically indicated.
[2021-07-24 06:07] VITALS: BP 124/81; PULSE 113; RESP 18; TEMP 36.6; O2SAT 100; BMI 19.9
--- NOTE | 2021-07-24 07:12 | ECG_ITS ---
Test Reason : FALL Blood Pressure : / mmHG Vent. Rate : 107 BPM Atrial Rate : 107 BPM P-R Int : 148 ms QRS Dur : 068 ms QT Int : 388 ms P-R-T Axes : 052 -16 034 degrees QTc Int : 517 ms Sinus tachycardia Possible Left atrial enlargement Septal infarct (cited on or before 04-JUL-2021) Abnormal ECG When compared with ECG of 04-JUL-2021 18:53, ST less depressed in Inferior leads Nonspecific T wave abnormality no longer evident in Anterolateral leads Heart rate has decreased Referred By: Aliya Osullivan Electronically Signed By:SAMSON PASCUAL
--- NOTE | 2021-07-24 07:18 | ED.FALL ---
HPI - Fall General Chief Complaint: Fall Stated Complaint: fall Time Seen by Provider: 07/24/21 07:12 History of Present Illness HPI Narrative: Patient is 61 years old status post fall. Hit her head on the left side. No loss of consciousness no nausea no vomiting. Patient denies any focal weakness. Has a history of breast cancer with metastatic disease. Patient denies any focal weakness. Denies feeling lightheaded prior. No chest pain. No cardiac history. Unsure of tetanus status. Related Data Home Medications Medication Instructions Recorded Confirmed brimonidine 0.2 % eye drops 1 drp OPHTHALMIC (EYE) BID 08/18/20 07/05/21 clonazepam 0.5 mg tablet 0.5 mg PO DAILY PRN 08/18/20 07/05/21 clonazepam 1 mg tablet 1 mg PO BID PRN 08/18/20 07/05/21 lurasidone 20 mg tablet 20 mg PO DAILY 08/18/20 07/05/21 mirtazapine 45 mg tablet 45 mg PO BEDTIME 08/18/20 07/05/21 quetiapine 50 mg tablet 50 mg PO BEDTIME 08/18/20 07/05/21 sertraline 100 mg tablet 100 mg PO DAILY 08/18/20 07/05/21 dexamethasone 4 mg tablet 4 mg PO TID 07/05/21 07/05/21 timolol maleate 0.5 % eye drops 1 drp OPHTHALMIC (EYE) BID 07/05/21 07/05/21 Previous Rx's Medication Instructions Recorded gabapentin 100 mg capsule 100 mg PO BID #60 cap 05/03/21 letrozole 2.5 mg tablet 2.5 mg PO DAILY tab 06/16/21 cefuroxime axetil 500 mg tablet 500 mg PO Q12H 7 Days #14 tab 07/05/21 Allergies Allergy/AdvReac Type Severity Reaction Status Date / Time aspirin [ASPIRIN] Allergy Intermediate GI UPSET Verified 03/24/21 16:06 Penicillins [PENICILLINS] Allergy Mild RASH/GI Verified 03/24/21 16:06 UPSET ( CHILD) Review of Systems Review of Systems: No fever no chills no cough no congestion no chest pain or shortness of breath All systems reviewed otherwise negative PMFSH Past Medical History Attestation statement: The following information was validated with the patient. Medical History Arthritis Bipolar disorder Breast cancer, right breast Carpal tunnel syndrome Depression Primary osteoarthritis of left knee Surgical History History of bilateral tubal ligation History of History of elbow surgery Hx of cataract removal with insertion of prosthetic lens Family History Family History Mother Diabetes Stroke Paternal Grandmother Cancer Social History Social History Alcohol intake: never Patient Tobacco Use Status: Former Tobacco user Tobacco use type: Cigarette Cigarettes Per Day: 2 Years Smoked: 10 Use of substances other than those prescribed or required for medical reasons: No Advance Directives: No Advance Directives Information Provided: No Sexual orientation: Straight/Heterosexual Gender identity: Female Physical Exam Vital Signs: Vital Signs: Last Vital Signs Temp 98 F 07/24/21 06:07 Pulse 113 H 07/24/21 06:07 Resp 18 07/24/21 06:07 BP 124/81 07/24/21 06:07 Pulse Ox 100 07/24/21 06:07 Oxygen Flow Rate 2 07/24/21 06:07 Body Mass Index 19.9 Appearance: Alert. Oriented X3. No acute distress. Positive swelling to the right forehead Eyes: Pupils equal, round and reactive to light. ENT: Pharynx normal. Neck: Normal inspection. Neck supple. No lymph nodes noted. No crepitus CVS: Normal heart rate and rhythm. Pulses normal. Normal S1 and S2 Respiratory: No respiratory distress. Breath sounds normal. No Wheezing. No rales Abdomen: Soft and nontender. No rigidity. No distention. good BS x4 Skin: Skin warm and dry. Normal skin color. Normal skin turgor. Extremities: No lower extremity edema. Neurovascular intact to all extremities. No Lacerations. No Rash Neuro: Oriented X 3. No motor deficit. No sensory deficit. Moving all extermities. No slurred speech MDM - Fall MDM Narrative Medical decision making narrative: CT scan of the head was negative for any acute evidence of bleeding. Attempted to get electrolytes and attempted to get IV fluid after discussion with family. Patient is a do not transfer comfort measure only. Given the significant tumor burden from metastatic breast cancer. Unfortunately patient ripped out her own IV. After the long discussion with patient's son. Does not wish for patient to get any additional attempts for blood draw or IV hydration. Will discharge patient back to facility. Lab Data Result diagrams: 07/24/21 08:35 07/24/21 08:35 Labs: Lab Results 07/24/21 Range/Units 08:35 WBC 17.2 H (4.8-10.8) X10*3/uL RBC 4.60 (4.20-5.50) X10*6/uL Hgb 11.8 L (12.0-16.0) g/dl Hct 40.8 (37-47) % MCV 88.7 (80-98) fL MCH 25.7 L (27.0-33.0) pg MCHC 28.9 L (31.0-35.0) g/dl RDW 16.1 H (11.0-16.0) % Plt Count 317 D (160-400) X10*3/uL MPV Not Reportable Immature Gran % (Auto) 2.8 H (0.0-0.4) % Neut % (Auto) 89.0 H (45-73) % Lymph % (Auto) 2.6 L (20-40) % [place] % (Auto) 5.2 (2-11) % Eos % (Auto) 0.1 (0-4) % Baso % (Auto) 0.3 (0-2) % Lymph # (Auto) 0.4 L (1.2-4.9) X10*3/uL [place] # (Auto) 0.9 (0.1-1.2) X10*3/uL Eos # (Auto) 0.0 (0.0-0.4) X10*3/uL Baso # (Auto) 0.1 (0.0-0.2) X10*3/uL Abs Immat Gran (auto) 0.49 H (0.00-0.03) X10*3/uL Absolute Neuts (auto) 15.4 H (2.0-8.3) X10*3/uL Absolute Nucleated RBC 0.030 H (0.0-0.012) X10*3/uL Nucleated RBC % (auto) 0.2 (0.0-0.2) /100WBC Smear Tech's Comments VERIFIED Discharge Plan Discharge Clinical Impression: Head injury Patient Disposition: Home, Self-Care Instructions: Head Injury (ED) Prescriptions: No Action gabapentin 100 mg capsule 100 mg PO BID Qty: 60 RF: 5 letrozole 2.5 mg tablet 2.5 mg PO DAILY RF: 3 dexamethasone 4 mg Tablet 4 mg PO TID RF: 0 timolol maleate 0.5 % drops 1 drp ophthalmic (eye) BID RF: 0 cefuroxime axetil 500 mg tablet 500 mg PO Q12H 7 Days Qty: 14 RF: 0 quetiapine 50 mg tablet 50 mg PO BEDTIME RF: 0 sertraline 100 mg tablet 100 mg PO DAILY RF: 0 clonazepam 1 mg tablet 1 mg PO BID PRN (Reason: Anxiety) RF: 0 clonazepam 0.5 mg tablet 0.5 mg PO DAILY PRN (Reason: anxiety) RF: 0 Latuda 20 mg tablet 20 mg PO DAILY RF: 0 mirtazapine 45 mg tablet 45 mg PO BEDTIME RF: 0 brimonidine 0.2 % drops 1 drp ophthalmic (eye) BID RF: 0 Referrals: Physician,Unknown [Primary Care Provider] - 2 days
--- NOTE | 2021-07-24 07:38 | PC.NURSE ---
Pt denies any pain or discomfort at this time. Answers simple questions asked. 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
--- NOTE | 2021-07-24 08:24 | PC.NURSE ---
Spoke to son Glen who request IV fluids for pt, and speak to Dr Osullivan. Dr Osullivan spoke with son and new orders obtained.
[2021-07-24 08:45] LABS: Basophils Absolute Auto 0.1 X10*3/uL (0.0-0.2); Basophils Percent Auto 0.3 % (0-2); Eosinophils Percent Auto 0.1 % (0-4); Hematocrit 40.8 % (37-47); Hemoglobin 11.8 g/dl (12.0-16.0); Imm Gran Abs Auto 0.49 X10*3/uL (0.00-0.03); Imm Gran Pct Auto 2.8 % (0.0-0.4); Lymphocytes Absolute Auto 0.4 X10*3/uL (1.2-4.9); Lymphocytes Percent Auto 2.6 % (20-40); MANUAL DIFF FLAG SCAN; Mean Corpuscular HGB Conc 28.9 g/dl (31.0-35.0); Mean Corpuscular Hemoglobin 25.7 pg (27.0-33.0); Mean Corpuscular Volume 88.7 fL (80-98); Monocytes Absolute Auto 0.9 X10*3/uL (0.1-1.2); Monocytes Percent Auto 5.2 % (2-11); NRBC Pct Auto 0.2 /100WBC (0.0-0.2); Neutrophils Absolute Auto 15.4 X10*3/uL (2.0-8.3); PLT CLUMP 1; Red Cell Distribution Width 16.1 % (11.0-16.0); SCAN SMEAR FLAG 1
[2021-07-24] MEDS: 0.9 % Sodium Chloride 1,000 ML 999 ML IV (08:55)
--- NOTE | 2021-07-24 08:58 | PC.NURSE ---
IV established and labs sent, tetanus to be given, ekg being obtained
[2021-07-24] MEDS: Diphth,Pertus(ACell),Tet Adult 0.5 ML SYRINGE IM (09:01)
[2021-07-24 09:06] LABS: Platelet Count 317 X10*3/uL (160-400); White Blood Count 17.2 X10*3/uL (4.8-10.8)
[2021-07-24 09:07] LABS: SLIDE REVIEW VERIFIED
--- NOTE | 2021-07-24 09:24 | PC.NURSE ---
Pt pulled out IV, was able to recieve approx 400ml of NS. Phelbotomy at bedside at this time for blood draw. Pt does appear to be sl more restless stating i dont know what im doing here redirected with some effect
--- NOTE | 2021-07-24 10:07 | PC.NURSE ---
report given to usha mckeon suhail
== END 2021-07-24 12:24 | disposition home or self-care (01) ==
PROVIDERS: Emergency Provider Emergency Medicine Emergency Medical Services
DX: S09.90XA Unspecified injury of head, initial encounter (principal); S00.91XA Abrasion of unspecified part of head, initial encounter; M54.2 Cervicalgia; G44.309 Post-traumatic headache, unspecified, not intractable; W01.0XXA Fall on same level from slipping, tripping and stumbling without subsequent striking against object, initial encounter; Y93.9 Activity, unspecified; Y92.9 Unspecified place or not applicable; Y99.9 Unspecified external cause status; Z79.899 Other long term (current) drug therapy; F17.210 Nicotine dependence, cigarettes, uncomplicated; Z71.6 Tobacco abuse counseling
CPT/HCPCS: 36415; 70450; 71045; 72125; 85025; 90471; 90715; 93005; 96360; 99284

== ENCOUNTER → 2024-06-24 14:21 | Outpatient (RCR) | payer MEDICARE, SELFPAY ==
--- NOTE | 2020-08-27 14:56 | P.PNHO_ITS ---
[facility] Telehealth - Telehealth Location of Provider rendering services: in oncology office Patient Identification confirmed using: Name, : Yes Patient verbally consented to billing insurance company: Yes Patient informed of any privacy concerns related to visit: Yes Medical Summary - Medical Summary Chief complaint: Follow-up for: Right breast cancer. Medical Summary: DIAGNOSIS: R BREAST CANCER. CURRENT THERAPY: DD AC, STARTED January. S/P CYCLE 2 ON 02/13. COMPLETED 4 CYCLES ON February. COMPLETED WEEKLY TAXOL, 12 WEEKS ON May. STATUS POST LUMPECTOMY ON 07/09, PATHOLOGY: Breast, right, excision: Negative for residual invasive ductal carcinoma; sentinel lymph node and three axillary lymph nodes positive for metastatic carcinoma. Benign breast tissue with focal fibrosis, calcifications, small fibroadenoma and focal fat necrosis. Overt histologic changes related to previous biopsy site not identified. Procedure Excision Laterality Right Tumor size 1.0 cm in greatest dimension (measured on biopsy, 19:1068, no residual tumor identified in current excision specimen) Tumor focality N/A Extent of tumor Skin N/A Nipple N/A Skeletal muscle N/A DCIS Not identified LCIS Not identified Type of invasive carcinoma Ductal Histologic grade (MSBR) 3 Tubule formation score 3 Nuclear pleomorphism score 3 Mitotic rate score 1 LVI Not identified Margin, inv tumor N/A Margin, DCIS N/A Lymph nodes Number examined 12 [place] nodes 2 Axillary nodes 10 Number involved With macrometastases 4 With micrometastases None With isolated tumor cells None Extranodal extension Not identified Size of largest met. deposit 0.8 cm Treatment effect Breast No residual invasive carcinoma is present in the breast after presurgical therapy Lymph nodes No definite response to presurgical therapy in metastatic carcinoma. TNM ypT0 ypN2a Ancillary studies ER+, NC-, Her2 negative. CURRENT THERAPY: STATUS POST COMPLETION OF NEOADJUVANT CHEMOTHERAPY. LETROZOLE 2.5 mg daily. Completed radiation therapy in October. Interval History Interval history: This is a pleasant 60-year-old lady, with whom a tele visit was held. She tells me she has been feeling quite well. Just been achy in her bones. Arms hurt. Allergies are acting up. Nasal stuffiness. No cough nor chest congestion. No fever no chills. No headache no dizziness. Just saw Dr. Bassett. Got a clear bill of health. She denies abdominal pain nausea vomiting heartburn indigestion. Bowels are working without any gross blood in it. Her appetite is not that good. She attributes it to anxiety. She is trying to gain her weight back. If she is not hungry, she would take a couple of Ensure drinks. She tells me she has a new primary who has addressed her concerns. She is very happy with her. She had LASIK eye surgery. She had seen some floaters. She has been using some eyedrops. She is in good spirits. Rest of the review of systems is unremarkable. Review of Systems - Constitutional Reports no additional constitutional complaints, Reports anorexia, Reports fatigue, Denies fever(s) - Eyes Reports no additional eye complaints - ENT Reports no additional ear, nose, mouth, and throat complaints - Cardiovascular Reports no additional cardiovascular complaints - Respiratory Reports no additional respiratory complaints - Gastrointestinal Reports no additional gastrointestinal complaints - Genitourinary Reports no additional female genitourinary complaints - Musculoskeletal Reports no additional musculoskeletal complaints, Reports joint pain - Integumentary/Breasts Skin/Breast: Reports no additional skin complaints - Neurologic Reports no additional neurologic complaints - Psychiatric Reports no additional psychiatric complaints, Reports anxiety, Reports depression - Endocrine Reports no additional endocrine complaints - Hematologic/Lymphatic Reports no additional hematologic/lymphatic complaints - Allergic/Immunologic Reports no additional allergic/immunologic complaints Home Medications and Allergies Home Medications Medication Instructions Recorded Confirmed Type brimonidine 0.2 % eye drops 1 drp OPHTHALMIC-RIGHT BID 08/18/20 08/18/20 History clonazepam 0.5 mg tablet 0.5 mg PO DAILY PRN 08/18/20 08/18/20 History clonazepam 1 mg tablet 1 mg PO BID PRN 08/18/20 08/18/20 History dronabinol 2.5 mg capsule 2.5 mg PO BID 08/18/20 08/18/20 History emollient combination no.73 applic TOPICAL 08/18/20 08/18/20 History letrozole 2.5 mg tablet 2.5 mg PO DAILY 08/18/20 08/18/20 History loteprednol etabonate 0.5 % eye 1 drp OPHTHALMIC (EYE) DAILY 08/18/20 08/18/20 History gel drops lurasidone 20 mg tablet mg PO 08/18/20 08/18/20 History mirtazapine 45 mg tablet 45 mg PO BEDTIME 08/18/20 08/18/20 History quetiapine 50 mg tablet 50 mg PO BEDTIME 08/18/20 08/18/20 History sertraline 100 mg tablet 100 mg PO DAILY 08/18/20 08/18/20 History triamcinolone acetonide 0.1 % applic TOPICAL 08/18/20 08/18/20 History topical cream Allergies Allergy/AdvReac Type Severity Reaction Status Date / Time Penicillins [PENICILLINS] Allergy Mild RASH/GI Verified 08/27/20 15:13 UPSET ( CHILD) aspirin [ASPIRIN] Allergy Unknown GI UPSET Unverified 08/18/20 09:25 Exam - Constitutional Present: no acute distress Progress Note: A/P (1) Breast cancer, right Status: Acute Assessment and plan: 60 years old lady, recently diagnosed with right Breast Cancer. ER is 5%. NC negative. HER-2/jaymie negative. Patient has positive lymph nodes, in the axilla. In addition, infraclavicular nodes were seen on the basis of the MRI. l proceeded with further staging workup. She had a PET scan, on January 28 at [facility]. This showed abnormal uptake within the right breast lesion, suggesting malignancy with metastatic adenopathy within the right axilla and right subclavian regions. That confirmed localized disease. She had a baseline Echo and DLCO. These were fine. She has been started on neoadjuvant chemotherapy. She completed 4 cycles of DD A.C, on March 13. She has completed 12 weeks of her weekly Taxol. MRI of the breast June 16 revealed: There has been complete radiologic response after neoadjuvant chemotherapy to the index lesion and axillary adenopathy on the right. No residual measurable disease. No new abnormality has developed. She had an excellent response to the neoadjuvant chemotherapy. Imaging revealed a complete response. She underwent a lumpectomy on 07/09, by Dr. Maxine Grijalva. No residual tumor was found, however she has 3 positive axillary nodes. She was deemed a candidate for antiestrogen, therapy since she had ER positive disease. She completed radiation, October 30, under the care of Dr. Nunez at [facility]. Her baseline bone mineral density was normal. She started Letrozole. She has been on it for about a year. She has been tolerating it really well. She follows with traffic incident management manager, Dr. Bassett for her Pap smears. She just saw him recently. She will go every year for follow-up. She has been under the care of Ophthalmology for her annual eye exam as well as postop LASIK. She is under podiatry care. PLAN: She will continue on the Letrozole for 5 years. I advised her to continue nutritious diet with Ensure supplements, to put the weight back on. She will return in 3 months for a follow-up. She will call for any new developments, prior to that time. 25 minutes were spent coordinating her care including the tele interview, review of labs, review of imaging, and counseling the patient. Thank you, CC: Dr. Nino. Dr. Irina Grijalva. Code Status FULL CODE - Time Spent With Patient Total time spent is greater than 50% in coordination of care (as documented) at patient's floor/unit and/or counseling patient: 25 - 35 minutes
== END | disposition home or self-care (01) ==
LOC: HO.ONC 08-27 15:32
PROVIDERS: PCP Internal Medicine; Visit Provider Internal Medicine Medical Oncology
DX: C50.911 Malignant neoplasm of unspecified site of right female breast (principal); Z79.811 Long term (current) use of aromatase inhibitors; Z17.0 Estrogen receptor positive status [ER+]; Z92.21 Personal history of antineoplastic chemotherapy; Z92.3 Personal history of irradiation
CPT/HCPCS: Q3014